=== PATIENT | female | born 1955 | race Caucasian/White ===

== ENCOUNTER 2017-11-12 09:21 | Day surgery (SDC) | payer OTHER ==
--- OUTSIDE RECORDS SUMMARY | 2017-11-12 09:24 | XMS REPORT ---
:1955 Author Organization eClinicalWorks Care Team Providers Name Role Phone Toy Romo Provider Role Unavailable Allergies, Adverse Reactions, Alerts Substance Reaction Event Type N.K.D.A. Info Not Available Non Drug Allergy Problems Problem Type Condition Code Onset Dates Condition Status Problem Liver cyst K76.89 Active Problem Allergic rhinitis, seasonal J30.2 Active Problem Breast cyst N60.09 Active Problem Anxiety F41.9 Active Problem Osteopenia M85.80 Active Problem Palpitations R00.2 Active Problem Myalgia M79.1 Active Problem Urine incontinence R32 Active Problem Migraine G43.909 Active Problem Low back pain M54.5 Active Problem Pure hypercholesterolemia E78.00 Active Problem Adult BMI 31.0-31.9 kg/sq m Z68.31 Active Problem Neuralgia and neuritis M79.2 Active Assessment Encounter for screening colonoscopy Z12.11 Active Problem Simple renal cyst N28.1 Active Medications Medication Code System Code Instructions Start Date End Date Status Dosage B-12 [facility] [address] Active not defined 4 iron NDC 0 Active not defined B-Complex [facility] [address] Active not defined 5 Biotin [facility] [address] Active not defined 3 Aspir-81 [facility] [address] Active not defined -26 Results No Known Results Summary Purpose eClinicalWorks Submission
[2017-11-12] MEDS ORDERED: Ringers Lactate 1,000 ML IV ONE (09:38)
[2017-11-12] MEDS ORDERED: LIDOCAINE 1% MPF 5 ML VIAL ONE (10:39)
[2017-11-12] MEDS ORDERED: PROPOFOL 200 MG/20 ML VIAL IV ONE (10:39)
--- NOTE | 2017-11-12 11:19 | ENDO RPT ---
[address], [address] COLONOSCOPY PROCEDURE REPORT EXAM DATE: 11/12/2017 PATIENT NAME: Fabiola Solorzano MR #: [id number] BIRTHDATE: 1955 ATTENDING: Toy Romo DR STATUS: outpatient SENIOR MANUFACTURING TECHNICIAN: Tasha Anna RN and Yo Benavidez INDICATIONS: The patient is a 62 yr old Female here for a colonoscopy due to colon cancer screening PROCEDURE PERFORMED: Colonoscopy MEDICATIONS: Per Anesthesia. ESTIMATED BLOOD LOSS: None CONSENT: The patient understands the risks and benefits of the procedure and understands that these risks include, but are not limited to: sedation, allergic reaction, infection, perforation and/or bleeding. Alternative means of evaluation and treatment include, among others: physical exam, x-rays, and/or surgical intervention. The patient elects to proceed with this endoscopic procedure. DESCRIPTION OF PROCEDURE: During intra-op preparation period all mechanical medical equipment was checked for proper function. Hand hygiene and appropriate measures for infection prevention was taken. Procedure, possible complications, alternatives including, but not limited to possibility of bleeding, perforation, tear, infection, sepsis, need for surgery, need for blood transfusion, were explained to the patient. After the risks, benefits and alternatives of the procedure were thoroughly explained, Informed consent was verified, confirmed and timeout was successfully executed by the treatment team. The patient was placed in the left lateral position. A digital rectal exam was performed and revealed internal hemorrhoids. After appropriate level of anesthesia, the scope was passed. The Pentax [id number] ([id number]) endoscope was introduced through the anus and advanced to the cecum. The quality of the prep was poor. The instrument was then slowly withdrawn as the colon was fully examined. Scope withdrawal time was 15 minutes. COLON FINDINGS: A normal appearing cecum, ileocecal valve, and appendiceal orifice were identified. the ascending, transverse, descending, sigmoid colon, and rectum appeared unremarkable. Small internal hemorrhoids were found. Retroflexed views revealed no abnormalities. The scope was then completely withdrawn from the patient and the procedure terminated. ADVERSE EVENTS: There were no complications. IMPRESSIONS: A normal appearing cecum, ileocecal valve, and appendiceal orifice were identified. the ascending, transverse, descending, sigmoid colon, and rectum appeared unremarkable RECOMMENDATIONS: 1. fiber rich diet 2. hemorrhoidal hygiene RECALL: Return in 3 year(s) for Colonoscopy. Poor Prep Toy Romo DR eSigned: Toy Romo DR 11/12/2017 11:19 AM cc: CPT CODES: ICD9 CODES: PATIENT NAME: Fabiola Solorzano MR#: [id number]
== END 2017-11-12 12:04 | disposition home or self-care (01) ==
LOC: OR 09:21
PROVIDERS: ATTEND Surgery
PROC: 0DJD8ZZ Inspection of Lower Intestinal Tract, Via Natural or Artificial Opening Endoscopic (ICD-10-PCS; principal; 2017-11-12 10:00)
DX: Z12.11 Encounter for screening for malignant neoplasm of colon (principal); K64.8 Other hemorrhoids; Z82.49 Family history of ischemic heart disease and other diseases of the circulatory system; Z80.9 Family history of malignant neoplasm, unspecified; Z82.61 Family history of arthritis

== ENCOUNTER 2018-02-02 23:46 | Emergency (ER) | payer OTHER ==
--- OUTSIDE RECORDS SUMMARY | 2018-02-02 23:48 | XMS REPORT ---
[...] Start Date End Date Status Dosage B-12 [facility] [address] Active not defined 4 iron NDC 0 Active not defined B-Complex [facility] [address] Active not defined 5 Biotin [facility] [address] Active not defined 3 Aspir-81 [facility] [address] Active not defined -26 Results No Known Results Summary Purpose eClinicalWorks Submission
[2018-02-03 00:35] LABS: Absolute Lymphocytes (CBC) 3.1 K/uL (0.7-4.9); Absolute Monocytes 0.8 K/uL (0.1-1.3); Absolute Neutrophil 6.3 K/uL (1.8-8.0); Basophils % 0.7 % (0-1.3); Hematocrit 40.6 % (36.0-45.0); Lymphocytes % 29.3 % (15.3-44.8); MCH 28.5 pg (27.0-35.0); MCV 84.7 fL (80-100); MPV 8.3 fL (7.6-11.3); Monocytes % 7.8 % (3.3-12.3)
[2018-02-03 00:48] LABS: Urine Blood 2+ (NEG); Urine Glucose NEGATIVE (NEG); Urine Protein 2+ (NEG); Urine Specific Gravity >1.030 (1.005-1.030); Urine pH 5.5 (5.0-7.0)
[2018-02-03 00:57] LABS: Albumin 3.7 g/dL (3.4-5.0); Bilirubin Direct 0.1 mg/dL (0-0.2); Bilirubin Total 0.4 mg/dL (0.2-1.0); Potassium 4.1 mmol/L (3.5-5.1); Protein, Total 7.8 g/dL (6.4-8.2)
[2018-02-03 01:10] LABS: Calcium Oxalate Crystals- Ur FEW (NONE SEEN); Urine Bacteria 20-50 /HPF (<20); Urine Culture Reflex Order REFLEXED; Urine RBC >50 /HPF (NONE SEEN)
[2018-02-03] MEDS ORDERED: ACETAMINOPHEN 500 MG TAB ONE (02:02)
--- NOTE | 2018-02-03 02:42 | EDPHYS ---
Physician Documentation [facility] Name: Fabiola Solorzano Age: 62 yrs Sex: Female : 1955 Arrival Date: 02/02/2018 Time: 23:47 Bed 24 Private MD: ED Physician Raul Taylor HPI: 02/03 01:13 This 62 yrs old Female presents to ER via Ambulatory with complaints of Blood jr8 In Urine. 01:13 Patient stated that she has had dysuria for the past couple of days. Has also noticed jr8 for the past couple of months that she has had black tar like stools. Now having abdominal pain on left side . Severity of symptoms: At their worst the symptoms were moderate in the emergency department the symptoms are unchanged. The patient has not experienced similar symptoms in the past. The patient has not recently seen a physician. Historical: - Allergies: 00:02 No Known Allergies; bb - Home Meds: 00:02 None [Active]; bb - PMHx: 00:02 None; bb - PSHx: 00:02 cataracts; bb - Immunization history:: Adult Immunizations unknown. - Social history:: Smoking status: Patient/guardian denies using tobacco, Patient/guardian denies using alcohol, street drugs. - Ebola Screening: : No symptoms or risks identified at this time. ROS: 01:13 Eyes: Negative for injury, pain, redness, and discharge, ENT: Negative for injury, jr8 pain, and discharge, Neck: Negative for injury, pain, and swelling, Cardiovascular: Negative for chest pain, palpitations, and edema, Respiratory: Negative for shortness of breath, cough, wheezing, and pleuritic chest pain, Back: Negative for injury and pain, MS/Extremity: Negative for injury and deformity, Skin: Negative for injury, rash, and discoloration, Neuro: Negative for headache, weakness, numbness, tingling, and seizure. 01:13 Abdomen/GI: Positive for abdominal pain, black/tarry stool, Negative for nausea, vomiting, and diarrhea, hematemesis, rectal pain, rectal bleeding, bowel incontinence, flatulence. 01:13 : Positive for urinary symptoms, hematuria. Exam: 01:13 Eyes: Pupils equal round and reactive to light, extra-ocular motions intact. Lids and jr8 lashes normal. Conjunctiva and sclera are non-icteric and not injected. Cornea within normal limits. Periorbital areas with no swelling, redness, or edema. ENT: Nares patent. No nasal discharge, no septal abnormalities noted. Tympanic membranes are normal and external auditory canals are clear. Oropharynx with no redness, swelling, or masses, exudates, or evidence of obstruction, uvula midline. Mucous membranes moist. Neck: Trachea midline, no thyromegaly or masses palpated, and no cervical lymphadenopathy. Supple, full range of motion without nuchal rigidity, or vertebral point tenderness. No Meningismus. Cardiovascular: Regular rate and rhythm with a normal S1 and S2. No gallops, murmurs, or rubs. Normal PMI, no JVD. No pulse deficits. Respiratory: Lungs have equal breath sounds bilaterally, clear to auscultation and percussion. No rales, rhonchi or wheezes noted. No increased work of breathing, no retractions or nasal flaring. Back: No spinal tenderness. No costovertebral tenderness. Full range of motion. Skin: Warm, dry with normal turgor. Normal color with no rashes, no lesions, and no evidence of cellulitis. MS/ Extremity: Pulses equal, no cyanosis. Neurovascular intact. Full, normal range of motion. Neuro: Awake and alert, GCS 15, oriented to person, place, time, and situation. Cranial nerves II-XII grossly intact. Motor strength 5/5 in all extremities. Sensory grossly intact. Cerebellar exam normal. Normal gait. 01:13 Abdomen/GI: Inspection: obese Bowel sounds: active, all quadrants, Palpation: soft, in all quadrants, mild abdominal tenderness, in the anterior aspect of left lateral abdomen and left lower quadrant, mass, is not appreciated, rebound tenderness, is not appreciated, voluntary guarding, is not appreciated, involuntary guarding, is not appreciated, no appreciated organomegaly, Indicators: McBurney's point is not tender, Hollins's sign is negative, Rovsing's sign is negative, Liver: no appreciated palpable abnormalities, tenderness, is not appreciated. 02:40 Abdomen/GI: Rectal exam: rectal tone normal, Stool: No stool in rectal vault to be able jr8 to test, hemorrhoid(s), external, without bleeding, without inflammation, without thrombosis, without pain, mass, is not appreciated, swelling, is not appreciated, tenderness, is not appreciated, the exam is chaperoned by the nurse. Vital Signs: 00:02 BP 158 / 80; Pulse 85; Resp 16 S; Temp 99.3(O); Pulse Ox 96% on R/A; Weight 97.52 kg bb (R); Height 5 ft. 7 in. (170.18 cm) (R); Pain 4/10; 00:56 BP 146 / 72; Pulse 87; Resp 18; Pulse Ox 95% on R/A; Pain 2/10; mg2 01:50 BP 149 / 85; Pulse 81; Resp 20; Pulse Ox 96% ; lc1 03:09 BP 125 / 77; Pulse 76; Resp 22; Pulse Ox 98% on R/A; lc1 00:02 Body Mass Index 33.67 (97.52 kg, 170.18 cm) bb MDM: 00:00 Patient medically screened. jr8 02:40 Data reviewed: vital signs, nurses notes, lab test result(s), radiologic studies, CT jr8 scan, and as a result, I will discharge patient. Data interpreted: Pulse oximetry: on room air is 96 %. Interpretation: normal. Counseling: I had a detailed discussion with the patient and/or guardian regarding: the historical points, exam findings, and any diagnostic results supporting the discharge/admit diagnosis, lab results, radiology results, the need for outpatient follow up, a national coverage specialist, to return to the emergency department if symptoms worsen or persist or if there are any questions or concerns that arise at home. ED course: Discussed with patient that she has cystitis. Will treat with antibiotics. No drop in H/H. Needs to f/u with GI for endoscopy and colonoscopy. Patient good with this and will follow up. 02/03 00:10 Order name: Urine Dipstick--Ancillary (enter results); Complete Time: 00:57 rg2 02/03 00:16 Order name: Basic Metabolic Panel; Complete Time: 00:58 02/03 00:16 Order name: CBC with Diff; Complete Time: 00:47 02/03 00:16 Order name: Creatinine for Radiology; Complete Time: 00:57 02/03 00:16 Order name: Hepatic Function; Complete Time: 00:58 02/03 00:16 Order name: Lipase; Complete Time: 00:58 02/03 00:16 Order name: Urine Microscopic Only; Complete Time: 01:13 02/03 00:16 Order name: IV Saline Lock; Complete Time: 00:20 02/03 00:16 Order name: Labs collected and sent; Complete Time: 00:20 02/03 00:16 Order name: Urine Dipstick-Ancillary (obtain specimen); Complete Time: 00:20 02/03 00:16 Order name: CT Abd/Pelvis - W/Contrast 02/03 01:11 Order name: Urine Culture EDMS Administered Medications: 02:20 Drug: Tylenol 1000 mg Route: PO; lc1 03:26 Follow up: Response: No adverse reaction 1 03:07 Drug: Rocephin 1 grams Route: IV; Rate: calculated rate; Site: right antecubital; lc1 03:08 Follow up: Response: No adverse reaction 1 03:08 Follow up: IV Status: Completed infusion 1 Disposition: 20:34 Co-signature as Attending Physician, Raul Taylor MD I agree with the assessment and wa plan of care. Disposition: 02/03/18 02:42 Discharged to Home. Impression: Acute cystitis with hematuria. - Condition is Stable. - Discharge Instructions: Urinary Tract Infection, Adult. - Prescriptions for Pyridium 200 mg Oral Tablet - take 1 tablet by ORAL route every 8 hours for 3 days; 9 tablet. Macrobid 100 mg Oral Capsule - take 1 capsule by ORAL route every 12 hours for 7 days; 14 capsule. - Medication Reconciliation Form, Thank You Letter, Antibiotic Education, Prescription Opioid Use form. - Follow up: Raul Jung MD; When: 1 week; Reason: Recheck today's complaints, Continuance of care, Re-evaluation by your physician. - Problem is new. - Symptoms have improved. Signatures: Dispatcher [employer] EDMS Jenn Staley RN RN Alana Rodriguez 1 Jordan Hernandez PA PA [id number] Raul Taylor MD MD [place] Corrections: (The following items were deleted from the chart) 03:27 02:42 02/03/2018 02:42 Discharged to Home. Impression: Acute cystitis with hematuria. lc1 Condition is Stable. Forms are Medication Reconciliation Form, Thank You Letter, Antibiotic Education, Prescription Opioid Use. Follow up: Raul Jung; When: 1 week; Reason: Recheck today's complaints, Continuance of care, Re-evaluation by your physician. Problem is new. Symptoms have improved. jr8
--- NOTE | 2018-02-03 02:42 | ER ---
Nurse's Notes [facility] Name: Fabiola Solorzano Age: 62 yrs Sex: Female : 1955 Arrival Date: 02/02/2018 Time: 23:47 Bed 24 Private MD: Diagnosis: Acute cystitis with hematuria Presentation: 02/03 00:01 Presenting complaint: Patient states: she was having back pain radiating to her abdomen bb and blood in her urine starting this past weekend thinks she may have passed a kidney stone. Transition of care: patient was not received from another setting of care. Onset of symptoms was January 31, 2018. Risk Assessment: Do you want to hurt yourself or someone else? Patient reports no desire to harm self or others. Initial Sepsis Screen: Does the patient meet any 2 criteria? No. Patient's initial sepsis screen is negative. Does the patient have a suspected source of infection? No. Patient's initial sepsis screen is negative. Care prior to arrival: None. 00:01 Method Of Arrival: Ambulatory bb 00:01 Acuity: SHABBIR 3 bb Historical: - Allergies: 00:02 No Known Allergies; bb - Home Meds: 00:02 None [Active]; bb - PMHx: 00:02 None; bb - PSHx: 00:02 cataracts; bb - Immunization history:: Adult Immunizations unknown. - Social history:: Smoking status: Patient/guardian denies using tobacco, Patient/guardian denies using alcohol, street drugs. - Ebola Screening: : No symptoms or risks identified at this time. Screenin:30 Abuse screen: Denies threats or abuse. Denies injuries from another. Nutritional kr2 screening: No deficits noted. Tuberculosis screening: No symptoms or risk factors identified. Fall Risk None identified. Assessment: 00:26 General: Appears in no apparent distress. uncomfortable, well groomed, well developed, kr2 well nourished, Behavior is calm, cooperative, appropriate for age. Pain: Complains of pain in head, back, abdomen and left flank Pain currently is 4 out of 10 on a pain scale. Quality of pain is described as aching, dull, Is continuous, Alleviated by medications, Aggravated by increased activity. Neuro: Level of Consciousness is awake, alert, obeys commands, Oriented to person, place, time, situation. Cardiovascular: Capillary refill < 3 seconds in bilateral fingers Patient's skin is warm and dry. Respiratory: Airway is patent Respiratory effort is even, unlabored, Respiratory pattern is regular, symmetrical. GI: Abdomen is round non-distended. GI: Bowel sounds present X 4 quads. : Urine is clear, Reports blood in urine and "like an electrical shock at the end of my urine stream". EENT: Oral mucosa is moist. Derm: Skin is intact, is healthy with good turgor, Skin is pink, warm \\T\\ dry. Rash noted that is itchy, raised. Musculoskeletal: Circulation, motion, and sensation intact. 01:30 Reassessment: No changes from previously documented assessment. Patient and/or family lc1 updated on plan of care and expected duration. Pain level reassessed. 02:30 Reassessment: No changes from previously documented assessment. Patient and/or family lc1 updated on plan of care and expected duration. Pain level reassessed. Patient states feeling better. . Vital Signs: 00:02 BP 158 / 80; Pulse 85; Resp 16 S; Temp 99.3(O); Pulse Ox 96% on R/A; Weight 97.52 kg bb (R); Height 5 ft. 7 in. (170.18 cm) (R); Pain 4/10; 00:56 BP 146 / 72; Pulse 87; Resp 18; Pulse Ox 95% on R/A; Pain 2/10; mg2 01:50 BP 149 / 85; Pulse 81; Resp 20; Pulse Ox 96% ; lc1 03:09 BP 125 / 77; Pulse 76; Resp 22; Pulse Ox 98% on R/A; lc1 00:02 Body Mass Index 33.67 (97.52 kg, 170.18 cm) bb ED Course: 02/02 23:47 Patient arrived in ED. ds1 23:57 Sparkle Fox, BREA is Primary Nurse. kr2 02/03 00:00 Jordan Hernandez PA is PHCP. jr8 00:00 Raul Taylor MD is Attending Physician. jr8 00:02 Triage completed. bb 00:02 Arm band placed on Patient placed in an exam room, on a stretcher, on pulse oximetry. bb 00:20 Inserted saline lock: 20 gauge in right antecubital area, using aseptic technique. kr2 Blood collected. 00:30 Patient has correct armband on for positive identification. Bed in low position. Call kr2 light in reach. Side rails up X 1. Pulse ox on. NIBP on. Door closed. Warm blanket given. Pillow given. Head of bed elevated. 01:[address] via wheelchair. kw1 01:28 CT Abd/Pelvis - W/Contrast In Process Unspecified. EDMS 01:29 CT completed. Patient tolerated procedure well. Patient moved back from CT. kw1 01:50 Awaiting radiology results. lc1 02:30 Served as a color mixer during rectal exam. IV discontinued, intact, bleeding controlled, lc1 Pressure dressing applied. 02:42 Raul Jung MD is Referral Physician. jr8 Administered Medications: 02:20 Drug: Tylenol 1000 mg Route: PO; lc1 03:26 Follow up: Response: No adverse reaction lc1 03:07 Drug: Rocephin 1 grams Route: IV; Rate: calculated rate; Site: right antecubital; lc1 03:08 Follow up: Response: No adverse reaction lc1 03:08 Follow up: IV Status: Completed infusion lc1 Outcome: 02:30 Discharged to home ambulatory. lc1 02:30 Condition: good 02:30 Discharge instructions given to patient, Instructed on discharge instructions, medication usage, Demonstrated understanding of instructions, follow-up care, medications. 02:42 Discharge ordered by . navi 03:27 Patient left the ED. lc1 Addendum: 02/06/2018 07:42 Addendum: Culture Results: Positive urine culture. No further action required. Bacteria i w sensitive to prescribed antibiotic. Signatures: Dispatcher [facility] Shanel Bae 1 Jenn Staley RN RN Hodan Abel RN RN iw Calhoun, Lisa lc1 Jordan Hernandez PA PA jr8 Sparkle Fox RN RN kr2 Yasemin Graves kw1 Cj Brody RN RN mg2 Corrections: (The following items were deleted from the chart) 02/03 00:31 00:26 Derm: Skin is intact, is healthy with good turgor, Skin is pink, warm \\T\\ dry. kr2 kr2
[2018-02-03] MEDS ORDERED: CEFTRIAXONE/SWI 1gm 1 GM/10 ML SYR ONE (02:44)
--- NOTE | 2018-02-03 08:35 | RAD REPORT ---
EXAM DESCRIPTION: CTAbdomen Pelvis W Contrast - 02/03/2018 4:19 am CLINICAL HISTORY: Abdominal pain. iv only;Abd pain COMPARISON: None TECHNIQUE: Biphasic CT imaging of the abdomen and pelvis was performed with 100 ml non-ionic IV cont rast. All CT scans are performed using dose optimization technique as appropriate and may include automated exposure control or mA/KV adjustment according to patient size. FINDINGS: The lung bases are clear. The liver contains a small benign cyst in the left lobe. The spleen, pancreas, adrenal glands and kid neys are within normal limits. No bowel obstruction, free air, free fluid or abscess. The appendix is normal. No evidence of signi ficant lymphadenopathy. No suspicious bony findings. Urinary bladder is decompressed however there is slight reticulation of the fat surrounding the collapsed urinary bladder. IMPRESSION: Cystitis is a possibility although the urinary bladder is incompletely assessed. Correla tion with urinalysis is suggested. Otherwise, no acute finding is demonstrated.
== END 2018-02-03 03:27 | disposition home or self-care (01) ==
LOC: ER 23:46
DX: N30.01 Acute cystitis with hematuria (principal)
CPT/HCPCS: 36415; 74177; 80048; 80076; 81003; 81015; 83690; 85025; 87077; 87086; 87088; 87186; 96374; 99285; J0696; Q9967

== ENCOUNTER 2019-04-28 15:48 | Emergency (ER) | payer SELFPAY ==
[2019-04-28] MEDS ORDERED: HYDROCODONE/APAP 7.5/325 MG TAB ONE (16:35)
--- NOTE | 2019-04-28 17:16 | RAD REPORT ---
EXAM DESCRIPTION: RAD - Knee Left 3 View - 04/28/2019 5:09 pm CLINICAL HISTORY: trip and fall;Pain COMPARISON: No comparisons FINDINGS: Moderate soft tissue swelling is seen along the medial aspect of the knee. No definitive a cute fracture seen. Small amount of suprapatellar fluid is present.
--- NOTE | 2019-04-28 17:17 | RAD REPORT ---
EXAM DESCRIPTION: RAD - Tib Fib Left - 04/28/2019 5:09 pm CLINICAL HISTORY: trip and fall;Pain COMPARISON: No comparisons FINDINGS: No acute fracture or dislocation seen.
--- NOTE | 2019-04-28 17:28 | EDPHYS ---
Physician Documentation [facility] Name: Fabiola Solorzano Age: 63 yrs Sex: Female : 1955 Arrival Date: 04/28/2019 Time: 15:48 Bed 20 Private MD: ED Physician Sreekanth Ordonez HPI: 04/28 16:25 This 63 yrs old Female presents to ER via Wheelchair with complaints of Knee cp Injury. 16:25 The patient presents with a contusion, an injury. cp 16:25 The complaints affect the medial aspect of left knee and left knee. Context: trip and cp fall. Onset: The symptoms/episode began/occurred today. Associated signs and symptoms: Pertinent positives: swelling, Pertinent negatives numbness, weakness. Treatment prior to arrival includes: icing the affected extremity. Severity of symptoms: in the emergency department the symptoms are unchanged, despite home interventions. Historical: - Allergies: 15:58 No Known Allergies; hb - Home Meds: 15:58 None [Active]; hb - PMHx: 15:58 None; hb - PSHx: 15:58 cataracts; hb - Immunization history:: Adult Immunizations up to date. - Social history:: Smoking status: Patient/guardian denies using tobacco. - Ebola Screening: : No symptoms or risks identified at this time. ROS: 16:30 Constitutional: Negative for body aches, chills, fever, poor PO intake. cp 16:30 Eyes: Negative for injury, pain, redness, and discharge. cp 16:30 Cardiovascular: Negative for chest pain. 16:30 Respiratory: Negative for cough, shortness of breath, wheezing. 16:30 Abdomen/GI: Negative for abdominal pain, nausea, vomiting, and diarrhea. 16:30 MS/extremity: Positive for decreased range of motion, pain, swelling, tenderness, of the medial aspect of left knee and left knee, Negative for deformity, paresthesias. 16:30 Neuro: Negative for loss of consciousness. 16:30 All other systems are negative. Exam: 16:45 Constitutional: The patient appears in no acute distress, alert, awake, non-toxic, well cp developed, well nourished. 16:45 Head/Face: Normocephalic, atraumatic. cp 16:45 Eyes: Periorbital structures: appear normal, Conjunctiva: normal, no exudate, no injection, Lids and lashes: appear normal, bilaterally. 16:45 ENT: External ear(s): are unremarkable, Nose: is normal, Mouth: is normal, Posterior pharynx: Airway: no evidence of obstruction, patent. 16:45 Neck: ROM/movement: is normal, is supple, without pain, no range of motions limitations. 16:45 Chest/axilla: Inspection: normal. 16:45 Cardiovascular: Rate: normal, Edema: is not appreciated. 16:45 Respiratory: the patient does not display signs of respiratory distress, Respirations: normal. 16:45 Musculoskeletal/extremity: Extremities: grossly normal except: noted in the anterior aspect left lower leg below knee: swelling, tenderness, There is no evidence of deformity, Joints: All joints are normal except the left knee displays pain at rest, painful range of motion, swelling, tenderness. 16:45 Skin: no rash present. 16:45 Neuro: Orientation: to person, place \T\ time. Mentation: is normal, Motor: moves all fours, strength is normal, Sensation: is normal. Vital Signs: 15:58 BP 124 / 92; Pulse 87; Resp 16; Temp 97.8; Pulse Ox 97% on R/A; Weight 88.45 kg; Height hb 5 ft. 7 in. (170.18 cm); Pain 9/10; 18:02 BP 122 / 88; Pulse 79; Resp 17; Pulse Ox 97% on R/A; tw2 15:58 Body Mass Index 30.54 (88.45 kg, 170.18 cm) hb Procedures: 17:45 Splinting: Splint applied to left knee using knee immobilizer, applied by nurse. cp Examined by me, post splint application: neurovascular intact, Patient tolerated well. 17:45 Crutch training provided to patient and/or family. Return demonstration given. cp MDM: 16:05 Patient medically screened. cp 16:45 Differential diagnosis: dislocation, open fracture, closed fracture, contusion. cp 17:26 Data reviewed: vital signs, nurses notes, radiologic studies, plain films. cp 17:26 Test interpretation: by ED physician or midlevel provider: plain radiologic studies. cp Counseling: I had a detailed discussion with the patient and/or guardian regarding: the historical points, exam findings, and any diagnostic results supporting the discharge/admit diagnosis, radiology results, the need for outpatient follow up, a orthopedic surgeon, to return to the emergency department if symptoms worsen or persist or if there are any questions or concerns that arise at home. Response to treatment: the patient's symptoms have markedly improved after treatment, and as a result, I will discharge patient. 04/28 16:23 Order name: XRAY Knee LEFT 3 view; Complete Time: 17:25 cp 04/28 17:26 Interpretation: Report reviewed. cp 04/28 16:23 Order name: XRAY Tib Fib LEFT; Complete Time: 17:25 cp 04/28 17:26 Interpretation: Report reviewed. cp 04/28 17:25 Order name: Crutches; Complete Time: 17:51 cp 04/28 17:34 Order name: Knee Immobilizer; Complete Time: 17:51 tw2 Administered Medications: 16:40 Drug: Hydrocodone-Acetaminophen (7.5 mg-325 mg) 1 tabs Route: PO; tw2 17:51 Follow up: Response: No adverse reaction; Pain is decreased; RASS: Alert and Calm (0) tw2 16:41 Not Given (Duplicate Order): Hydrocodone-Acetaminophen (7.5 mg-325 mg) 2 tabs PO once; tw2 RASS on ADMIN: Combtv4, Very Agttd3, Agttd2, Rstlss1, AlertClm0, Drwsy-1, Lt Sdtn-2, Mod Sdtn-3, Dp Sdtn-4, UnArsble-5 Disposition: 04/29 09:20 Co-signature as Attending Physician, Sreekanth Ordonez MD I agree with the assessment and kdr plan of care. Disposition: 04/28/19 17:27 Discharged to Home. Impression: Contusion of left knee. - Condition is Stable. - Discharge Instructions: Knee Immobilizer, Knee Pain. - Prescriptions for Ibuprofen 800 mg Oral Tablet - take 1 tablet by ORAL route every 8 hours As needed take with food; 30 tablet. Tramadol 50 mg Oral Tablet - take 1 tablet by ORAL route every 8 hours as needed; 15 tablet. - Medication Reconciliation Form, Thank You Letter, Antibiotic Education, Prescription Opioid Use form. - Follow up: Russell Maynard MD; When: 2 - 3 days; Reason: Recheck today's complaints. - Problem is new. - Symptoms have improved. Signatures: Dispatcher [employer] EDMS Sreekanth Ordonez MD MD [facility] Adelita Morales RN RN ss Damian Rosales PA PA cp Bridget Salgado, BREA RN Rosalie Ortiz RN RN tw2 Corrections: (The following items were deleted from the chart) 04/28 17:26 17:25 Knee Immobilizer ordered. cp tw2 17:56 17:27 04/28/2019 17:27 Discharged to Home. Impression: Contusion of left knee. ss Condition is Stable. Forms are Medication Reconciliation Form, Thank You Letter, Antibiotic Education, Prescription Opioid Use. Follow up: Dr. Russell Maynard; When: 2 - 3 days; Reason: Recheck today's complaints. Problem is new. Symptoms have improved. cp
--- NOTE | 2019-04-28 17:28 | ER ---
Nurse's Notes [facility] Name: Fabiola Solorzano Age: 63 yrs Sex: Female : 1955 Arrival Date: 04/28/2019 Time: 15:48 Bed 20 Private MD: Diagnosis: Contusion of left knee Presentation: 04/28 15:56 Presenting complaint: Left knee pain after mechanical from standing just [employer]. Pt hb tripped in garage and landed onto knees. Transition of care: patient was not received from another setting of care. Onset of symptoms was April 28, 2019. Risk Assessment: Do you want to hurt yourself or someone else? Patient reports no desire to harm self or others. Initial Sepsis Screen: Does the patient meet any 2 criteria? No. Patient's initial sepsis screen is negative. Does the patient have a suspected source of infection? No. Patient's initial sepsis screen is negative. Care prior to arrival: None. 15:56 Method Of Arrival: Wheelchair hb 15:56 Acuity: SHABBIR 4 hb Triage Assessment: 16:06 Injury Description: fell from standing. tw2 Historical: - Allergies: 15:58 No Known Allergies; hb - Home Meds: 15:58 None [Active]; hb - PMHx: 15:58 None; hb - PSHx: 15:58 cataracts; hb - Immunization history:: Adult Immunizations up to date. - Social history:: Smoking status: Patient/guardian denies using tobacco. - Ebola Screening: : No symptoms or risks identified at this time. Screenin:00 Abuse screen: Denies threats or abuse. Nutritional screening: No deficits noted. tw2 Tuberculosis screening: No symptoms or risk factors identified. Fall Risk None identified. Assessment: 16:05 General: Appears in no apparent distress. obese, Behavior is calm, cooperative, tw2 appropriate for age. Pain: Complains of pain in left knee. Neuro: Level of Consciousness is awake, alert, obeys commands, Oriented to person, place, time, situation. Cardiovascular: Patient's skin is warm and dry. Respiratory: Airway is patent Respiratory effort is even, unlabored, Respiratory pattern is regular, symmetrical. GI: No signs and/or symptoms were reported involving the gastrointestinal system. : No signs and/or symptoms were reported regarding the genitourinary system. EENT: No signs and/or symptoms were reported regarding the EENT system. Derm: No signs and/or symptoms reported regarding the dermatologic system. Musculoskeletal: Circulation, motion, and sensation intact. Range of motion: intact in all extremities, Swelling present in left knee. 17:00 Reassessment: Patient appears in no apparent distress at this time. No changes from tw2 previously documented assessment. Patient and/or family updated on plan of care and expected duration. Pain level reassessed. Patient is alert, oriented x 3, equal unlabored respirations, skin warm/dry/pink. 18:02 Reassessment: Patient appears in no apparent distress at this time. No changes from tw2 previously documented assessment. Patient and/or family updated on plan of care and expected duration. Pain level reassessed. Patient is alert, oriented x 3, equal unlabored respirations, skin warm/dry/pink. Vital Signs: 15:58 BP 124 / 92; Pulse 87; Resp 16; Temp 97.8; Pulse Ox 97% on R/A; Weight 88.45 kg; Height hb 5 ft. 7 in. (170.18 cm); Pain 9/10; 18:02 BP 122 / 88; Pulse 79; Resp 17; Pulse Ox 97% on R/A; tw2 15:58 Body Mass Index 30.54 (88.45 kg, 170.18 cm) hb ED Course: 15:48 Patient arrived in ED. as 15:58 Triage completed. hb 15:58 Arm band placed on. hb 16:00 Rosalie Ortiz, RN is Primary Nurse. tw2 16:00 Bed in low position. Call light in reach. tw2 16:03 Damian Rosales PA is PHCP. cp 16:03 Sreekanth Ordonez MD is Attending Physician. cp 17:10 XRAY Knee LEFT 3 view In Process Unspecified. EDMS 17:11 XRAY Tib Fib LEFT In Process Unspecified. EDMS 17:27 Russell Maynard MD is Referral Physician. cp 18:01 Patient did not have IV access during this emergency room visit. Crutch training done. tw2 Knee immobilizer applied on left knee. 18:02 No provider procedures requiring assistance completed. tw2 Administered Medications: 16:40 Drug: Hydrocodone-Acetaminophen (7.5 mg-325 mg) 1 tabs Route: PO; tw2 17:51 Follow up: Response: No adverse reaction; Pain is decreased; RASS: Alert and Calm (0) tw2 16:41 Not Given (Duplicate Order): Hydrocodone-Acetaminophen (7.5 mg-325 mg) 2 tabs PO once; tw2 RASS on ADMIN: Combtv4, Very Agttd3, Agttd2, Rstlss1, AlertClm0, Drwsy-1, Lt Sdtn-2, Mod Sdtn-3, Dp Sdtn-4, UnArsble-5 Outcome: 17:27 Discharge ordered by . cp 17:56 Patient left the ED. ss 18:03 Discharged to home via wheelchair, with family, with friend. tw2 18:03 Condition: stable 18:03 Discharge instructions given to patient, family, friend, Instructed on discharge instructions, follow up and referral plans. no driving heavy equipment, medication usage, safety practices, crutch walking, knee immobilizer Demonstrated understanding of instructions, follow-up care, medications, crutch walking, Prescriptions given X 2. Signatures: Dispatcher [employer] Keyla Altman Shelby RN RN Damian Rosales PA PA cp Baxter, Heather, RN RN hb Rosalie Ortiz RN RN tw2 Corrections: (The following items were deleted from the chart) 15:59 15:56 Acuity: SHABBIR 3 hb hb
[2019-04-28 18:15] VITALS: BP 124/92; TEMP 97.8; O2SAT 97
== END 2019-04-28 17:56 | disposition home or self-care (01) ==
LOC: ER 15:48
DX: S80.02XA Contusion of left knee, initial encounter (principal); W01.0XXA Fall on same level from slipping, tripping and stumbling without subsequent striking against object, initial encounter; Y93.89 Activity, other specified; Y92.9 Unspecified place or not applicable
CPT/HCPCS: 99284

== ENCOUNTER 2020-11-26 18:45 | Observation (INO) | payer MEDICARE, SELFPAY ==
--- OUTSIDE RECORDS SUMMARY | 2020-11-26 18:48 | XMS REPORT | Continuity of Care Document ---
:1955 Author Organization [facility] t Address [address] [place] [address] Care Team Providers Name Role Phone Unavailable Unavailable Unavailable Problems Condition Condition Condition Status Onset Resolution Last Treating Co mments Source Name Details Category Date Date Treatment Clinician Date Liver cyst Liver cyst Problem Active [facility] Allergic All[facility] Problem [facility] Breast Breast Problem Active [facility]xiety Anxiety Problem [facility] Osteopenia Osteopenia Problem Active [facility] Palpitatio Palpitatio Problem Active [facility] Myalgia Myalgia Problem Active [facility] Urine Urine Problem Active [facility] incontinen incontinen [facility] Migraine Migraine Problem [facility] Low back Low back Problem [facility]ics Pure Pure Problem Active [facility] hyperchole hyperchole [facility] - sterolemia sterolemia [facility] Adult BMI Adult BMI Problem Active [facility] 31.0-31.9 31.0-31.9 [facility] - kg/sq m kg/sq m [facility] Neuralgia Neuralgia Problem [facility] Simple Simple Problem Active [facility] renal cyst renal cyst [facility] Nocturnal Nocturnal Diagnosis Active [facility] leg cramps leg cramps [facility] LLQ LLQ Diagnosis Active [facility] abdominal abdominal [facility] pain [facility] Allergies, Adverse Reactions, Alerts This patient has no known allergies or adverse reactions. Medications Ordered Filled Start Stop Current Ordering Indication Dosage Frequency Signature Comments Components Source Medication Medication Date Date Medication? Clinician (SIG) Name Name B-12 B-12 Yes Brandon not [facility] iron iron Yes [facility] B[facility]Complex B-Complex Yes [facility] Biotin Biotin Yes Brandon [facility]ics Aspir-81 Aspir-81 Yes Brandon [facility] [place] 2018- No Brandon [address] [facility] 03-02 Alexis applicatio [facility] - 00:00 n to [facility] :00 affected l area [facility] Procedures This patient has no known procedures. Encounters Start End Encounter Admission Attending Care Care Encounter Source Date/Time Date/Time Type Type Clinicians Facility Department ID 2018-02-23 2018-02-23 [facility] [id number] [facility] 14:20[facility]00 14:20:00 t [facility] 2018-02-10 2018-02-10 [facility] [id number] [facility] 16:20:00 16:20:00 t [facility] 2018-02-02 2018-02-02 [facility] [id number] [address] 16:33:00 16:33:00 t [facility] 2017-11-05 2017-11-05 [facility] [id number] [facility] 14:45:00 14:45:00 t Specialty/U [facility] - Specialty [facility] Results This patient has no known results.
[2020-11-26 20:23] LABS: Absolute Lymphocytes (CBC) 1.7 K/uL (0.7-4.9); Basophils % 0.4 % (0-1.3); Hematocrit 40.4 % (36.0-45.0); Lymphocytes % 26.1 % (15.3-44.8); MPV 7.9 fL (7.6-11.3); RBC Red Blood Cell Count 4.86 M/uL (3.86-4.86)
--- NOTE | 2020-11-26 20:24 | RAD REPORT ---
EXAM DESCRIPTION: Marquise Single View11/26/2020 8:07 pm CLINICAL HISTORY: cough COMPARISON: none FINDINGS: The lungs appear clear of acute infiltrate. The heart is borderline enlarged IMPRESSION: No acute abnormalities displayed
[2020-11-26 20:32] LABS: Urine Blood Negative (Negative); Urine Glucose Negative (Negative); Urine Protein 1+ (Negative); Urine Specific Gravity 1.025 (1.005-1.030)
[2020-11-26] MEDS ORDERED: METHYLPREDNISOLONE 125 MG INJ ONE (20:37)
[2020-11-26] MEDS ORDERED: ONDANSETRON 4 MG/2 ML VIAL ONE (20:38)
[2020-11-26] MEDS ORDERED: FAMOTIDINE 20 MG/2 ML VIAL IV ONE (20:38)
[2020-11-26] MEDS ORDERED: BENZONATATE 100 MG CAP PO ONE (20:38)
[2020-11-26 20:46] LABS: ALT/SGPT 46 U/L (12-78); AST/SGOT 33 U/L (15-37); Albumin 3.8 g/dL (3.4-5.0); Alkaline Phosphatase 186 U/L (45-117); BUN Blood Urea Nitrogen 17 mg/dL (7-18); Bicarbonate 26 mmol/L (21-32); Bilirubin Direct < 0.1 mg/dL (0-0.2); Bilirubin Total 0.3 mg/dL (0.2-1.0); Glucose Level 103 mg/dL (74-106); Magnesium 2.4 mg/dL (1.8-2.4); NT PRO-BNP 34 pg/mL (<125); Potassium 4.4 mmol/L (3.5-5.1); Protein, Total 7.9 g/dL (6.4-8.2); Sodium Level 139 mmol/L (136-145); Troponin (Emerg Dept Use Only) < 0.02 ng/mL (0.0-0.045)
[2020-11-26 21:02] LABS: Urine Amorphous Sediment 1+ /HPF (NONE SEEN); Urine Bacteria <20 /HPF (<20); Urine Mucus 2+ /HPF (NONE SEEN)
[2020-11-26 21:44] LABS: Protime INR 1.03
[2020-11-26 21:53] LABS: SARS-COV-2 RT PCR POSITIVE (NEGATIVE)
[2020-11-26] MEDS ORDERED: ACETAMINOPHEN 500 MG TAB ONE (23:10)
--- NOTE | 2020-11-27 01:22 | ER ---
Nurse's Notes [facility] Name: Fabiola Solorzano Age: 65 yrs Sex: Female : 1955 Arrival Date: 11/26/2020 Time: 18:47 Bed 14 Private MD: Diagnosis: Other viral pneumonia;Pericardial effusion (noninflammatory);Dyspnea Presentation: 11/26 19:09 Chief complaint: Patient states: Pt coughing and diarrhea for about 3-4 days, ABD pain, ae4 h/a, and sinus drainage. Coronavirus screen: Client denies travel out of the [place] in the last 14 days. Client presents with at least one sign or symptom that may indicate coronavirus-19. Standard/surgical mask placed on the client. Ebola Screen: Patient negative for fever greater than or equal to 101.5 degrees Fahrenheit, and additional compatible Ebola Virus Disease symptoms. Initial Sepsis Screen: Does the patient meet any 2 criteria? RR > 20 per min. HR > 90 bpm. Yes Does the patient have a suspected source of infection?. Risk Assessment: Do you want to hurt yourself or someone else? Patient reports no desire to harm self or others. Onset of symptoms was November 23, 2020. 19:09 Method Of Arrival: Ambulatory ae4 19:09 Acuity: SHABBIR 3 ae4 Triage Assessment: 19:12 General: Appears in no apparent distress. uncomfortable, Behavior is calm, cooperative. ae4 Pain: Complains of pain in chest and abdomen. GI: Abdomen is flat, non-distended. Historical: - Allergies: 19:12 No Known Allergies; ae4 - Immunization history:: Adult Immunizations up to date. - Social history:: Smoking status: Patient denies any tobacco usage or history of. Screenin:30 Abuse screen: Denies threats or abuse. Denies injuries from another. Nutritional wh screening: No deficits noted. Tuberculosis screening: No symptoms or risk factors identified. Fall Risk None identified. Assessment: 19:30 General: Appears in no apparent distress. Behavior is calm, cooperative, appropriate wh for age. Pain: Denies pain. Neuro: Level of Consciousness is awake, alert, obeys commands, Oriented to person, place, time, situation, Appropriate for age. Cardiovascular: Heart tones S1 S2. Respiratory: Reports shortness of breath cough that is Airway is patent Respiratory effort is even, unlabored, Respiratory pattern is tachypnea Breath sounds are clear bilaterally. GI: Abdomen is flat, non-distended, Reports diarrhea. GI: Reports nausea. : No signs and/or symptoms were reported regarding the genitourinary system. EENT: No signs and/or symptoms were reported regarding the EENT system. Derm: Skin is intact, is healthy with good turgor, Skin is pink, warm \T\ dry. normal. Musculoskeletal: Circulation, motion, and sensation intact. 20:45 Reassessment: Patient appears in no apparent distress at this time. No changes from previously documented assessment. Patient and/or family updated on plan of care and expected duration. Pain level reassessed. Patient is alert, oriented x 3, equal unlabored respirations, skin warm/dry/pink. 22:50 Reassessment: Patient appears in no apparent distress at this time. Patient and/or family updated on plan of care and expected duration. Pain level reassessed. Patient is alert, oriented x 3, equal unlabored respirations, skin warm/dry/pink. 11/27 00:04 Reassessment: Patient appears in no apparent distress at this time. Patient and/or family updated on plan of care and expected duration. Pain level reassessed. Patient is alert, oriented x 3, equal unlabored respirations, skin warm/dry/pink. 02:00 Reassessment: Patient appears in no apparent distress at this time. Patient and/or family updated on plan of care and expected duration. Pain level reassessed. Patient is alert, oriented x 3, equal unlabored respirations, skin warm/dry/pink. Provider at bedside explaining POC need for admit. Vital Signs: 11/26 19:09 BP 132 / 88; Pulse 118; Resp 22; Temp 97.4; Pulse Ox 94% on R/A; Weight 83.91 kg; ae4 Height 5 ft. 7 in. (170.18 cm); Pain 5/10; 20:45 BP 119 / 71; Pulse 88; Resp 22; Pulse Ox 95% on R/A; wh 22:00 BP 138 / 77; Pulse 82; Resp 18; Pulse Ox 94% on R/A; 11/27 00:00 BP 123 / 73; Pulse 79; Resp 16; Pulse Ox 95% on R/A; wh 01:30 BP 131 / 73; Pulse 79; Resp 18; Pulse Ox 95% on R/A; wh 02:45 BP 132 / 57; Pulse 75; Resp 15; Pulse Ox 94% on R/A; wh 11/26 19:09 Body Mass Index 28.97 (83.91 kg, 170.18 cm) ae4 ED Course: 11/26 18:47 Patient arrived in ED. ds1 19:11 Triage completed. ae4 19:12 Arm band placed on. ae4 19:15 Karyn Paz, RN is Primary Nurse. wh 19:30 Patient has correct armband on for positive identification. Placed in gown. Bed in low wh position. Call light in reach. Side rails up X 1. vehicle monitor technician on. Pulse ox on. NIBP on. 19:34 Damian Rosales PA is PHCP. cp 19:34 Sergio Spear MD is Attending Physician. cp 19:45 Inserted saline lock: 20 gauge in right forearm, using aseptic technique. Blood wh collected. 20:07 XRAY Chest (1 view) In Process Unspecified. EDMS 21:47 Notified Nurse Practitioner and/or Physician Coating Supervisor of a critical lab result(s), bb D-Dimer of [id number] Damian PFEIFFER notified. 23:30 Chest For PE Angio CT In Process Unspecified. EDMS 23:30 CT Abd/Pelvis - IV Contrast Only In Process Unspecified. EDMS 11/27 00:20 Initiated transfer at [facility] with Letty Osiel. Stated she would do a bed check tt3 and call back. 00:38 Letty Cartagena called back and stated that the transfer request was denied due to no tt3 beds. 00:39 Initiated transfer at [facility] with Sydnee Bryon. Stated she would do a bed tt3 check and call back. 00:43 Letty Osiel called back and stated that the other campuses had to decline. Two due to tt3 not having the needed services and the last due to no beds. 00:55 Sydnee Slater from [facility] called back and stated that the transfer request was tt3 denied due to no beds. 01:20 Robert Prado PA is Hospitalizing Provider. cp 01:21 Hospitalizing Provider role handed off by Robert Prado PA cp 01:21 Navi Strong DO is Hospitalizing Provider. cp 03:02 No provider procedures requiring assistance completed. Patient admitted, IV remains in place. Administered Medications: 11/26 20:20 Drug: Tessalon Perle (benzonatate) 200 mg Route: PO; 20:51 Follow up: Response: No adverse reaction 20:22 Drug: Zofran (Ondansetron) 4 mg Route: IVP; Site: right forearm; 20:51 Follow up: Response: No adverse reaction; Nausea is decreased 20:24 Drug: Pepcid (famotidine) 20 mg Route: IVP; Site: right forearm; 20:51 Follow up: Response: No adverse reaction 20:26 Drug: SOLU-Medrol (methylPrednisoLONE) 125 mg Route: IVP; Site: right forearm; 20:51 Follow up: Response: No adverse reaction 22:54 Drug: Tylenol 1000 mg Route: PO; 11/27 02:28 Follow up: Response: No adverse reaction; Pain is decreased Outcome: 01:21 Decision to Hospitalize by Provider. cp 03:03 Admitted to ICU accompanied by [facility], via wheelchair, room 3, with chart, Report called to Lindsay Doran RN 03:03 Condition: stable 03:03 Instructed on the need for admit. 04:00 Patient left the ED. Signatures: Dispatcher [employer] EDMS Shanel Bae ds1 Jenn Staley RN RN bb Damian Rosales PA PA Karyn Paz RN RN Gera Martin RN RN ae4 Damien Smallwood tt3 Corrections: (The following items were deleted from the chart) 03:02 02:45 BP 132 / 57; Pulse 15bpm; Resp 75bpm; Pulse Ox 94% RA; [facility]
--- NOTE | 2020-11-27 01:22 | EDPHYS ---
Physician Documentation [facility] Name: Fabiola Solorzano Age: 65 yrs Sex: Female : 1955 Arrival Date: 11/26/2020 Time: 18:47 Bed 14 Private MD: ED Physician Sergio Spear HPI: 11/26 20:00 This 65 yrs old Female presents to ER via Ambulatory with complaints of cp Cough, Diarrhea, Shortness Of Breath. 20:00 The patient has shortness of breath with light activity. Onset: The symptoms/episode cp began/occurred gradually, and became worse today. 20:00 Duration: The symptoms are continuous, and are steadily getting worse. Associated signs cp and symptoms: Pertinent positives: non-productive cough, diarrhea, Pertinent negatives: chest pain, fever, vomiting. Patient reports recently diagnosed with COVID-19. Cough started about 4 days ago and has been getting worse. Historical: - Allergies: 19:12 No Known Allergies; ae4 - Immunization history:: Adult Immunizations up to date. - Social history:: Smoking status: Patient denies any tobacco usage or history of. ROS: 20:00 Constitutional: Negative for body aches, chills, fever, poor PO intake. cp 20:00 Eyes: Negative for injury, pain, redness, and discharge. cp 20:00 ENT: Negative for ear pain, sore throat, difficulty swallowing, difficulty handling secretions. 20:00 Cardiovascular: Negative for chest pain, edema, palpitations. 20:00 Respiratory: Positive for cough, "sounds productive", shortness of breath, on exertion. dyspnea, Negative for wheezing. 20:00 Abdomen/GI: Positive for nausea, diarrhea, Negative for abdominal pain, constipation. 20:00 : Negative for urinary symptoms. 20:00 Neuro: Positive for near syncope, weakness, Negative for altered mental status, headache, syncope. 20:00 All other systems are negative. Exam: 20:00 ECG was reviewed by the Attending Physician. cp 20:05 Constitutional: The patient appears in no acute distress, alert, awake, cp non-diaphoretic, non-toxic, well developed, well nourished, uncomfortable. 20:05 Head/Face: Normocephalic, atraumatic. cp 20:05 Eyes: Periorbital structures: appear normal, Conjunctiva: normal, no exudate, no injection, Sclera: no appreciated abnormality, Lids and lashes: appear normal, bilaterally. 20:05 ENT: External ear(s): are unremarkable, Nose: is normal, Mouth: Lips: moist, Oral mucosa: pink and intact, moist, Posterior pharynx: Airway: no evidence of obstruction, patent. 20:05 Neck: ROM/movement: is normal, is supple, without pain, no range of motions limitations, no meningismus. 20:05 Chest/axilla: Inspection: normal, Palpation: is normal, no crepitus, no tenderness. 20:05 Cardiovascular: Rate: tachycardic, Rhythm: regular, Edema: is not appreciated, JVD: is not appreciated. 20:05 Respiratory: the patient does not display signs of respiratory distress, Respirations: shallow respirations, that is mild, Breath sounds: bronchial sounds, that are mild, are heard diffusely, decreased breath sounds, are not appreciated, stridor, is not appreciated, + upper airway congestion. wheezing: is not appreciated. 20:05 Abdomen/GI: Inspection: abdomen appears normal, Bowel sounds: active, all quadrants, Palpation: soft, in all quadrants, mild abdominal tenderness, in the right upper quadrant and left lower quadrant, rebound tenderness, is not appreciated, involuntary guarding, is not appreciated. 20:05 Skin: no rash present. 20:05 Neuro: Orientation: to person, place \\T\\ time. Mentation: is normal, Cerebellar function: is grossly normal, Motor: moves all fours, strength is normal, Sensation: is normal. Vital Signs: 19:09 BP 132 / 88; Pulse 118; Resp 22; Temp 97.4; Pulse Ox 94% on R/A; Weight 83.91 kg; ae4 Height 5 ft. 7 in. (170.18 cm); Pain 5/10; 20:45 BP 119 / 71; Pulse 88; Resp 22; Pulse Ox 95% on R/A; wh 22:00 BP 138 / 77; Pulse 82; Resp 18; Pulse Ox 94% on R/A; wh 11/27 00:00 BP 123 / 73; Pulse 79; Resp 16; Pulse Ox 95% on R/A; wh 01:30 BP 131 / 73; Pulse 79; Resp 18; Pulse Ox 95% on R/A; wh 02:45 BP 132 / 57; Pulse 75; Resp 15; Pulse Ox 94% on R/A; 11/26 19:09 Body Mass Index 28.97 (83.91 kg, 170.18 cm) ae4 MDM: 11/26 19:46 Patient medically screened. cp 20:00 Differential diagnosis: pneumonia, pulmonary edema, Pulmonary Embolism Sepsis. 11/27 01:00 Data reviewed: vital signs, nurses notes, lab test result(s), EKG, radiologic studies, cp CT scan, plain films, I have discussed the patient's presentation/case with the attending Emergency Department Physician; and as a result, I will admit patient. 01:02 Physician consultation: Robert PFEIFFER was called at 00:55, was contacted at 00:55, cp regarding admission, to the telemetry unit. patient's condition, and will see patient in ED, shortly. 11/26 19:45 Order name: COVID-19 : Document "Date of Symptom Onset" if Symptomatic. 11/26 19:45 Order name: Influenza Screen (a \\T\\ B) 11/26 19:45 Order name: Basic Metabolic Panel 11/26 19:45 Order name: CBC with Diff; Complete Time: 20:49 11/26 19:45 Order name: LFT's; Complete Time: 20:49 11/26 20:50 Interpretation: Normal except: ALK 186; GLOB 4.1; A/G 0.9. 11/26 19:45 Order name: Magnesium; Complete Time: 20:49 11/26 19:45 Order name: NT PRO-BNP; Complete Time: 20:49 11/26 19:45 Order name: PT-INR; Complete Time: 21:48 11/26 19:45 Order name: Troponin (emerg Dept Use Only); Complete Time: 20:49 cp 11/26 19:45 Order name: CRP; Complete Time: 20:49 11/26 20:50 Interpretation: Abnormal: C-REACTIVE PROT 18.00. 11/26 19:45 Order name: D-Dimer; Complete Time: 21:48 11/26 19:45 Order name: Urine Microscopic Only; Complete Time: 21:48 11/26 19:46 Order name: Influenza Screen (A EDMS 11/26 19:45 Order name: XRAY Chest (1 view); Complete Time: 20:26 11/26 20:26 Interpretation: Report reviewed. 11/26 19:45 Order name: EKG; Complete Time: 19:46 11/26 19:45 Order name: Cardiac monitoring; Complete Time: 20:52 cp 11/26 19:45 Order name: EKG - Nurse/Tech; Complete Time: 20:52 11/26 19:45 Order name: IV Saline Lock; Complete Time: 20:52 11/26 19:45 Order name: Labs collected and sent; Complete Time: 20:52 cp 11/26 19:46 Order name: Basic Metabolic Panel; Complete Time: 20:49 EDMS 11/26 20:50 Interpretation: Normal except: GFR 85. 11/26 20:31 Order name: Urine Dipstick-Ancillary; Complete Time: 20:49 EDMS 11/26 21:48 Order name: Chest For PE Angio CT 11/26 21:48 Order name: CT Abd/Pelvis - IV Contrast Only 11/26 21:53 Order name: COVID-19/FLU A+B; Complete Time: 23:01 EDMS 11/26 19:45 Order name: O2 Per Protocol; Complete Time: 20:52 cp 11/26 19:45 Order name: O2 Sat Monitoring; Complete Time: 20:52 11/26 19:45 Order name: Urine Dipstick-Ancillary (obtain specimen); Complete Time: 20:52 cp EC/23 20:00 Rate is 108 beats/min. Rhythm is regular. ND interval is normal. QRS interval is cp normal. QT interval is normal. T waves are Inverted in leads aVL, aVR, V2. Interpreted by me. Reviewed by me. Administered Medications: 20:20 Drug: Tessalon Perle (benzonatate) 200 mg Route: PO; wh 20:51 Follow up: Response: No adverse reaction wh 20:22 Drug: Zofran (Ondansetron) 4 mg Route: IVP; Site: right forearm; wh 20:51 Follow up: Response: No adverse reaction; Nausea is decreased wh 20:24 Drug: Pepcid (famotidine) 20 mg Route: IVP; Site: right forearm; wh 20:51 Follow up: Response: No adverse reaction 20:26 Drug: SOLU-Medrol (methylPrednisoLONE) 125 mg Route: IVP; Site: right forearm; 20:51 Follow up: Response: No adverse reaction 22:54 Drug: Tylenol 1000 mg Route: PO; 11/27 02:28 Follow up: Response: No adverse reaction; Pain is decreased Disposition: 04:35 Co-signature as Attending Physician, Sergio Spear MD. [email or web address] Disposition: 11/27/20 01:21 Hospitalization ordered by Navi Strong for Inpatient Admission. Preliminary diagnosis are Other viral pneumonia, Pericardial effusion (noninflammatory), Dyspnea. - Bed requested for Intensive Care Unit. - Status is Inpatient Admission. - Condition is Stable. - Problem is new. - Symptoms have improved. Signatures: Dispatcher [employer] [facility] Marcia Richard RN RN mw Lam, Pin, MD MD pkDamian Duran PA PA Karyn Paz RN RN Gera Martin RN RN ae4 Corrections: (The following items were deleted from the chart) 11/26 20:52 19:46 CORONAVIRUS ordered. [facility] 11/27 01:21 01:21 Hospitalization Ordered by Robert PFEIFFER for Inpatient Admission. Preliminary cp diagnosis is Other viral pneumonia; Pericardial effusion (noninflammatory); Dyspnea. Bed requested for Telemetry/MedSurg (Inpatient). Status is Inpatient Admission. Condition is Stable. Problem is new. Symptoms have improved. 02:19 01:21 11/27/2020 01:21 Hospitalization Ordered by Navi Strong DO for Inpatient Admission. Preliminary diagnosis is Other viral pneumonia; Pericardial effusion (noninflammatory); Dyspnea. Bed requested for Telemetry/MedSurg (Inpatient). Status is Inpatient Admission. Condition is Stable. Problem is new. Symptoms have improved. 04:00 02:19 11/27/2020 01:21 Hospitalization Ordered by Navi Strong DO for Inpatient Admission. Preliminary diagnosis is Other viral pneumonia; Pericardial effusion (noninflammatory); Dyspnea. Bed requested for Intensive Care Unit. Status is Inpatient Admission. Condition is Stable. Problem is new. Symptoms have improved.
--- NOTE | 2020-11-27 02:32 | P.HP ---
Certification for Inpatient Patient admitted to: Observation With expected LOS: <2 Midnights Patient will require the following post-hospital care: None Practitioner: I am a practitioner with admitting privileges, knowledge of patient current condition, hospital course, and medical plan of care. Services: Services provided to patient in accordance with Admission requirements found in Title 42 Section 412.3 of the Code of Federal Regulations Patient History Date of Service: 11/27/20 Primary Care Provider: Will Reason for admission: pericardial effusion, covid pneumonia History of Present Illness: Ms. Solorzano is a 65 yo F here today with COVID+ diagnosis and symptoms for the past 13 days. Today, she reports chest pain, SOB, ALBRECHT, cough, and wheezing. She says today the pain worsened to the point that she felt she would pass out. Chest pain is worse when lying flat. Reports nausea, vomiting, diarrhea (5-8x a day), night sweats, and weakness. Denies hemoptysis. Her is currently admitted to the hospital for COVID pneumonia. Allergies No Known Allergies Allergy (Unverified 11/12/17 10:11) Home Medications: Aspirin 81 mg PO 11/12/17 B Complex with Vitamin C [Super B-Complex & C] 1 each PO 11/12/17 Biotin 10,000 mcg PO 11/12/17 Cyanocobalamin (Vitamin B-12) [Vitamin B-12] 5,000 mcg SL 11/12/17 Iron 11/12/17 Vit C/E/Zn/Coppr/Lutein/Zeaxan [Preservision Areds 2 Softgel] 1 each PO 11/12/17 - Past Medical/Surgical History Has patient received pneumonia vaccine in the past: No Diabetic: No Past Medical History: Patient denies medical history Past Surgical History: Patient denies surgical history - Family History Family History: Reviewed- Non-Contributory - Social History Smoking Status: Never smoker Alcohol use: No CD- Drugs: No Caffeine use: No Place of Residence: Home Review of Systems General: Sweats, Weakness, As per HPI Eyes: Unremarkable ENT: Unremarkable Respiratory: Cough, Shortness of Breath, SOB with Excertion, Pleuritic Pain, Sputum, Wheezing, As per HPI Cardiovascular: Chest Pain, As per HPI Gastrointestinal: Nausea, Vomiting, Diarrhea Genitourinary: Unremarkable Musculoskeletal: Unremarkable Integumentary: Unremarkable Neurological: Unremarkable Lymphatics: Unremarkable Physical Examination - Physical Exam General: Alert, In no apparent distress, Oriented x3, Cooperative HEENT: Atraumatic, Normocephalic, PERRLA, Mucous membr. moist/pink, EOMI, Sclerae nonicteric Neck: Supple, 2+ carotid pulse no bruit, JVD not distended, No Thyromegaly, No LAD Respiratory: Clear to auscultation bilaterally, Expiratory wheezes Cardiovascular: No edema, Normal pulses, Regular rate/rhythm, Normal S1 S2, No gallops, No rubs, No murmurs Capillary refill: <2 Seconds Gastrointestinal: Normal bowel sounds, Soft and benign, Non-distended, No ascites, No tenderness, No masses, No rebound, No guarding Musculoskeletal: No clubbing, No swelling, No contractures, No erythema, No tenderness, No warmth Integumentary: No rashes, No breakdown, No significant lesion, No tenderness/swelling, No erythema, No warmth, No cyanosis Neurological: Normal speech, Normal strength at 5/5 x4 extr, Normal tone, Sensation intact, Cranial nerves 3-12 intact, Normal affect Lymphatics: No axilla or inguinal lymphadenopathy - Studies Laboratory Data (last 24 hrs) 11/26/20 20:15: PT 11.9, INR 1.03 11/26/20 20:15: WBC 6.50, Hgb 13.7, Hct 40.4, Plt Count 234 11/26/20 20:15: Sodium 139, Potassium 4.4, BUN 17, Creatinine 0.69, Glucose 103, Magnesium 2.4, Total Bilirubin 0.3, AST 33, ALT 46, Alkaline Phosphatase 186 H Assessment and Plan - Problems (Diagnosis) (1) Pneumonia due to COVID-19 virus Current Visit: Yes Status: Acute (2) Pericardial effusion without cardiac tamponade Current Visit: Yes Status: Acute - Plan ECHO in the AM ESR pending continue Ibuprofen, Protonix Zofran and tessalon perles prn covid supplements currently stable on room air DVT ppx Discharge Plan: Home Plan to discharge in: 24 Hours - Advance Directives Does patient have a Living Will: No Does patient have a Durable POA for Healthcare: No - Code Status/Comfort Care Code Status Assessed: Yes (full code) Critical Care: No Time Spent Managing Pts Care (In Minutes): 70
[2020-11-27] MEDS ORDERED: NA CHLORIDE 0.9% 1,000 ML ONE (04:09)
[2020-11-27] MEDS ORDERED: ONDANSETRON 4 MG/2 ML VIAL IV PRN (04:24)
[2020-11-27] MEDS ORDERED: IBUPROFEN 600 MG TAB PO PRN (04:24)
[2020-11-27] MEDS: NA CHLORIDE 0.9% 1,000 ML IV SCH ×2 (04:30→23:21)
[2020-11-27 05:06] VITALS: BMI 30.6
[2020-11-27 05:10] LABS: Absolute Lymphocytes (CBC) 1.4 K/uL (0.7-4.9); Basophils % 0.3 % (0-1.3); Hematocrit 40.8 % (36.0-45.0); Lymphocytes % 31.1 % (15.3-44.8); MPV 7.9 fL (7.6-11.3); RBC Red Blood Cell Count 4.86 M/uL (3.86-4.86)
[2020-11-27] MEDS: BENZONATATE 100 MG CAP PO PRN ×3 (05:11→14:28)
[2020-11-27 05:38] LABS: ALT/SGPT 42 U/L (12-78); AST/SGOT 26 U/L (15-37); Albumin 3.6 g/dL (3.4-5.0); Alkaline Phosphatase 177 U/L (45-117); BUN Blood Urea Nitrogen 15 mg/dL (7-18); Bicarbonate 23 mmol/L (21-32); Bilirubin Total 0.2 mg/dL (0.2-1.0); Ferritin 284.9 ng/mL (8-388); Glucose Level 173 mg/dL (74-106); Magnesium 2.5 mg/dL (1.8-2.4); Phosphorus 3.5 mg/dL (2.5-4.9); Potassium 4.1 mmol/L (3.5-5.1); Protein, Total 7.7 g/dL (6.4-8.2); Sodium Level 140 mmol/L (136-145)
[2020-11-27 06:49] LABS: Urine Appearance CLEAR (Clear); Urine Bilirubin NEGATIVE (Negataive); Urine Blood NEGATIVE (Negative); Urine Color YELLOW (Yellow); Urine Glucose NEGATIVE (Negative); Urine Microscopic Reflex NO UMIC; Urine Protein NEGATIVE (Negative); Urine Specific Gravity >=1.030 (1.005-1.030); Urine Urobilinogen 0.2 mg/dL (0.2-1.0); Urine pH 5.5 (5.0-7.0)
[2020-11-27] MEDS: PANTOPRAZOLE 40MG TABLET PO SCH ×2 (08:45→17:29)
[2020-11-27] MEDS: ENOXAPARIN 40 MG/0.4 ML SQ SCH (08:45)
[2020-11-27] MEDS: ZINC SULFATE 220 MG CAP PO SCH (08:45)
[2020-11-27] MEDS: THIAMINE HCL 100 MG TABLET PO SCH (08:45)
[2020-11-27] MEDS: ASCORBIC ACID 500 MG TABLET PO SCH ×4 (08:45→20:05)
[2020-11-27] MEDS: VITAMIN D 1000 UNIT TAB PO SCH (08:59)
--- NOTE | 2020-11-27 10:13 | RAD REPORT ---
EXAM DESCRIPTION: CT - Chest For Pe Angio - 11/27/2020 4:49 am CLINICAL HISTORY: Cough;SOB. COMPARISON: None. TECHNIQUE: CTA of the chest was performed following intravenous administration of iodinated contrast . Axial soft tissue and bone window, and coronal and sagittal soft tissue window reconstructions were created and sent to PACS. 3D postprocessing was performed on an independent workstation, with images sent to PACS for subsequen t review. This exam was performed according to our departmental dose-optimization program, which includes autom ated exposure control, adjustment of the mA and/or kV according to patient size and/or use of iterati ve reconstruction technique. FINDINGS: Vascular: Suboptimal evaluation of the distal pulmonary arteries due to streak artifact. N o CT evidence of central acute pulmonary thromboembolism. No evidence of aortic aneurysm or dissectio n. Lungs and pleura: Small patchy regions of peripheral interstitial thickening/groundglass opacificatio n. No dense pulmonary consolidation. No pleural effusion. No pneumothorax. Mediastinum and neck: No mediastinal lymphadenopathy by CT size criteria. Unremarkable appearance of the thyroid gland. Cardiac: No cardiomegaly. Medium sized pericardial effusion. Abdomen: No significant upper abdominal abnormality identified. Musculoskeletal: No concerning osseous abnormality. IMPRESSION: 1. Suboptimal evaluation of the distal pulmonary arteries due to streak artifact. No C T evidence of central acute pulmonary thromboembolism. 2. Small patchy regions of peripheral interstitial thickening/groundglass opacification. Correlate for infectious/inflammatory change. 3. Medium sized pericardial effusion. Electronically signed by: Salima Staples MD 11/26/2020 11:56 PM CDT Due to temporary technical issues with the PACS/Fluency reporting system, reports are being signed by the in house radiologists without review as a courtesy to insure prompt reporting. The interpreting radiologist is fully responsible for the content of the report.
--- NOTE | 2020-11-27 10:15 | RAD REPORT ---
EXAM DESCRIPTION: CT - Abdomen Pelvis W Contrast - 11/27/2020 4:45 am CLINICAL HISTORY: The patient is 65 years old and is Female; ABD PAIN TECHNIQUE: Axial computed tomography images of the abdomen and pelvis with intravenous contrast. S agittal and coronal reformatted images were created and reviewed. This CT exam was performed using one or more of the following dose reduction techniques: automated exposure control, adjustment of t he mA and/or kV according to patient size, and/or use of iterative reconstruction technique. COMPARISON: No relevant prior studies available. FINDINGS: Lung bases: Bibasilar atelectasis. Heart: Partially visualized moderate pericardial effusion. ABDOMEN: Liver: 1.1 cm cyst in the left liver. Gallbladder and bile ducts: Unremarkable. No calcified stones. No ductal dilation. Pancreas: Unremarkable. No mass. No ductal dilation. Spleen: Unremarkable. No splenomegaly. Adrenals: Unremarkable. No mass. Kidneys and ureters: Unremarkable. No solid mass. No hydronephrosis. Stomach and bowel: Unremarkable. No obstruction. No mucosal thickening. PELVIS: Appendix: No findings to suggest acute appendicitis. Bladder: Unremarkable. No mass. Reproductive: Unremarkable as visualized. ABDOMEN and PELVIS: Intraperitoneal space: Unremarkable. No free air. No significant fluid collection. Bones/joints: No acute fracture. No dislocation. Soft tissues: Unremarkable. Vasculature: Unremarkable. No abdominal aortic aneurysm. Lymph nodes: Unremarkable. No enlarged lymph nodes. IMPRESSION: 1. Partially visualized moderate pericardial effusion. 2. No acute findings in the abdomen/pelvis. Electronically signed by: eBrt Torre MD 11/27/2020 12:54 AM CDT Due to temporary technical issues with the PACS/Fluency reporting system, reports are being signed by the in house radiologists without review as a courtesy to insure prompt reporting. The interpreting radiologist is fully responsible for the content of the report.
--- NOTE | 2020-11-27 14:15 | ECHO ---
HEIGHT: 5 ft 7 in WEIGHT: 195 lb 8 oz DATE OF STUDY: 11/27/[address]: Robert Prado 2-DIMENSIONAL: YES M.MODE: YES DOPPLER: YES COLOR FLOW: YES TDS: PORTABLE: DEFINITY: BUBBLE STUDY: DIAGNOSIS: PERICARDIAL EFFUSION CARDIAC HISTORY: CATHERIZATION: SURGERY: PROSTHETIC VALVE: PACEMAKER: MEASUREMENTS (cm) DIASTOLIC (NORMALS) SYSTOLIC (NORMALS) IVSd 1.1 (0.6-1.2) LA Diam 2.8 (1.9-4.0) LVEF 55-60% LVIDd 4.0 (3.5-5.7) LVIDs 2.2 (2.0-3.5) %FS 43% LVPWd 1.1 (0.6-1.2) Ao Diam 2.7 (2.0-3.7) 2 DIMENSIONAL ASSESSMENT: RIGHT ATRIUM: NORMAL LEFT ATRIUM: NORMAL RIGHT VENTRICLE: NORMAL LEFT VENTRICLE: NORMAL TRICUSPID VALVE: NORMAL MITRAL VALVE: NORMAL PULMONIC VALVE: NORMAL AORTIC VALVE: NORMAL PERICARDIAL EFFUSION: SMALL TO MODERATE AORTIC ROOT: NORMAL LEFT VENTRICULAR WALL MOTION: NORMAL DOPPLER/COLOR FLOW: NORMAL COMMENTS: NORMAL LEFT VENTRICULAR EJECTION FRACTION 55-60% WITH NORMAL WALL MOTION. SMALL TO MODERATE PERICARDIAL EFFUSION. TECHNOLOGIST: SAM DOTSON
[2020-11-27 15:01] LABS: C.diff Antigen/Toxin Ag neg : Tox neg (NEG : NEG)
[2020-11-27] MEDS ORDERED: LOPERAMIDE HCL 2 MG CAPSULE PO STA (15:59)
[2020-11-27] MEDS: guaiFENesin 100 MG/5 ML UCUP PO PRN (18:50)
[2020-11-27] MEDS: IBUPROFEN 400 MG TAB PO PRN (18:51)
--- NOTE | 2020-11-27 19:53 | P.PN ---
Subjective Date of Service: 11/27/20 Primary Care Provider: Will Chief Complaint: pericardial effusion, covid pneumonia Patient with intermittent chest pain. She is also coughing. CTA thorax showed patchy infiltrates. Patient is tolerating room air with borderline oxygen saturation. Echocardiogram shows small to moderate pericardial effusion. Pneumonia due to COVID 19 Pericardial effusion Plan: Supportive measures-NSAIDS, steroid. Patient is very anxious about going home today. Monitor overnight and possible Dc a.m. Physical Examination - Vital Signs Temperature: 98.4 F Blood Pressure: 136/88 Pulse: 71 Respirations: 20 Pulse Ox (%): 92 - Studies Laboratory Data (last 24 hrs) 11/26/20 20:15: PT 11.9, INR 1.03 11/26/20 20:15: WBC 6.50, Hgb 13.7, Hct 40.4, Plt Count 234 11/26/20 20:15: Sodium 139, Potassium 4.4, BUN 17, Creatinine 0.69, Glucose 103, Magnesium 2.4, Total Bilirubin 0.3, AST 33, ALT 46, Alkaline Phosphatase 186 H
[2020-11-27] MEDS: predniSONE 20 MG TAB PO SCH (20:05)
[2020-11-27 23:01] VITALS: O2SAT 93
[2020-11-28] MEDS: IBUPROFEN 400 MG TAB PO PRN (01:56)
[2020-11-28] MEDS: guaiFENesin 100 MG/5 ML UCUP PO PRN ×2 (01:57→07:29)
[2020-11-28 05:06] LABS: Absolute Lymphocytes (CBC) 1.4 K/uL (0.7-4.9); Basophils % 0.1 % (0-1.3); Hematocrit 36.3 % (36.0-45.0); Lymphocytes % 13.7 % (15.3-44.8); MPV 8.4 fL (7.6-11.3); RBC Red Blood Cell Count 4.32 M/uL (3.86-4.86)
[2020-11-28 05:13] VITALS: TEMP 97.4
[2020-11-28 05:18] LABS: ALT/SGPT 34 U/L (12-78); AST/SGOT 21 U/L (15-37); Albumin 3.1 g/dL (3.4-5.0); Alkaline Phosphatase 136 U/L (45-117); BUN Blood Urea Nitrogen 18 mg/dL (7-18); Bicarbonate 26 mmol/L (21-32); Bilirubin Total 0.3 mg/dL (0.2-1.0); Ferritin 207.4 ng/mL (8-388); Glucose Level 124 mg/dL (74-106); Magnesium 2.3 mg/dL (1.8-2.4); Phosphorus 3.4 mg/dL (2.5-4.9); Potassium 4.3 mmol/L (3.5-5.1); Protein, Total 6.5 g/dL (6.4-8.2); Sodium Level 144 mmol/L (136-145)
[2020-11-28] MEDS: THIAMINE HCL 100 MG TABLET PO SCH (07:29)
[2020-11-28] MEDS: BENZONATATE 100 MG CAP PO PRN (07:29)
[2020-11-28] MEDS: VITAMIN D 1000 UNIT TAB PO SCH (07:29)
[2020-11-28] MEDS: ENOXAPARIN 40 MG/0.4 ML SQ SCH (07:30)
[2020-11-28] MEDS: PANTOPRAZOLE 40MG TABLET PO SCH (07:30)
[2020-11-28] MEDS: ZINC SULFATE 220 MG CAP PO SCH (07:30)
[2020-11-28] MEDS: ASCORBIC ACID 500 MG TABLET PO SCH ×2 (07:30→12:11)
[2020-11-28] MEDS: predniSONE 20 MG TAB PO SCH (09:04)
--- NOTE | 2020-11-28 11:03 | P.DS ---
Admission Date: 11/27/20 Discharge Date: 11/28/20 Primary Care Provider: Will Disposition: ROUTINE DISCHARGE Discharge Condition: GOOD Reason for Admission: pericardial effusion, covid pneumonia Procedures: CXR (11/26): lungs appear clear of acute infiltrate. The heart is borderline enlarged CT Abd/Pelvis (11/26): Partially visualized moderate pericardial effusion. 2. No acute findings in the abdomen/pelvis. CTA Chest (11/26): 1. Suboptimal evaluation of the distal pulmonary arteries due to streak artifact. No CT evidence of central acute pulmonary thromboembolism. 2. Small patchy regions of peripheral interstitial thickening/groundglass opacification. Correlate for infectious/inflammatory change. 3. Medium sized pericardial effusion. TTE (11/27): normal LVEF: 55-60%, normal wall motion. small-moderate pericardial effusion. Problem List: Pneumonia due to COVID 19 Pericardial effusion without cardiac tamponade Brief History of Present Illness: Ms. Solorzano is a 65 yo F here today with COVID+ diagnosis and symptoms for the past 13 days. Today, she reports chest pain, SOB, ALBRECHT, cough, and wheezing. She says today the pain worsened to the point that she felt she would pass out. Chest pain is worse when lying flat. Reports nausea, vomiting, diarrhea (5-8x a day), night sweats, and weakness. Denies hemoptysis. Her is currently admitted to the hospital for COVID pneumonia. Hospital Course: Patient was empirically treated for COVID-19 pneumonia. She did not require oxygen supplementation. Her symptoms improved and she was discharged home. Cardiology was consulted regarding her pericardial effusion. They felt patient did not require further intervention at this time and she will follow up in the office. Follow up with PCP in 3-5 days. Follow up with Dr. Foster in ~1 week. Vital Signs/Physical Exam: Temp Pulse Resp BP Pulse Ox 97.4 F 79 19 152/82 H 93 11/28/20 04:00 11/28/20 08:00 11/28/20 04:00 11/28/20 08:00 11/28/20 04:00 General: Alert, In no apparent distress, Oriented x3 HEENT: Mucous membr. moist/pink, Sclerae nonicteric Neck: Supple Respiratory: Diminished Cardiovascular: No edema, Normal pulses, Regular rate/rhythm Gastrointestinal: Soft and benign, Non-distended, No tenderness Musculoskeletal: No contractures, No tenderness Integumentary: No rashes, No breakdown Neurological: Normal speech, Normal affect Laboratory Data at Discharge: WBC 10.20 K/uL (4.3-10.9) D 11/28/20 04:35 Hgb 12.2 g/dL (12.0-15.0) 11/28/20 04:35 Hct 36.3 % (36.0-45.0) 11/28/20 04:35 Plt Count 242 K/uL (152-406) 11/28/20 04:35 PT 11.9 SECONDS (9.5-12.5) 11/26/20 20:15 INR 1.03 11/26/20 20:15 Sodium 144 mmol/L (136-145) 11/28/20 04:35 Potassium 4.3 mmol/L (3.5-5.1) 11/28/20 04:35 BUN 18 mg/dL (7-18) 11/28/20 04:35 Creatinine 0.55 mg/dL (0.55-1.3) 11/28/20 04:35 Glucose 124 mg/dL (74-106) H 11/28/20 04:35 Phosphorus 3.4 mg/dL (2.5-4.9) 11/28/20 04:35 Magnesium 2.3 mg/dL (1.8-2.4) 11/28/20 04:35 Total Bilirubin 0.3 mg/dL (0.2-1.0) 11/28/20 04:35 AST 21 U/L (15-37) 11/28/20 04:35 ALT 34 U/L (12-78) 11/28/20 04:35 Alkaline Phosphatase 136 U/L (45-117) H 11/28/20 04:35 Home Medications: RX: Aspirin 81 mg PO DAILY 11/12/17 RX: B Complex with Vitamin C [Super B-Complex & C] 1 tab PO DAILY 11/12/17 RX: Biotin 10,000 mcg PO DAILY 11/12/17 RX: Cyanocobalamin (Vitamin B-12) [Vitamin B-12] 5,000 mcg SL DAILY 11/12/17 RX: Iron 1 tab PO DAILY 11/12/17 RX: Vit C/E/Zn/Coppr/Lutein/Zeaxan [Preservision Areds 2 Softgel] 1 cap PO DAILY 11/12/17 RX: Echinacea 380 mg PO DAILY 11/27/20 RX: Magnesium Carb,Citrate,Oxide [Magnesium Complex] 300 mg PO DAILY 11/27/20 RX: Ascorbic Acid [Vitamin C*] 500 mg PO QID 30 Days #120 tablet 11/28/20 RX: Benzonatate [Tessalon Perle*] 100 mg PO TID PRN 7 Days #21 cap 11/28/20 RX: Cholecalciferol (Vitamin D3) [Vitamin D 1000 Iu Tab*] 4,000 unit PO DAILY 30 Days #120 tab 11/28/20 RX: Pantoprazole [Protonix Tab*] 40 mg PO BIDAC 30 Days #60 tab 11/28/20 RX: Thiamine HCl [Vitamin B-1*] 200 mg PO DAILY 30 Days #60 tablet 11/28/20 RX: Zinc Sulfate [Zinc Sulfate*] 220 mg PO DAILY 30 Days #30 cap 11/28/20 RX: predniSONE [Prednisone*] 20 mg PO SEECOM 14 Days #21 tab 11/28/20 New Medications: RX: predniSONE [Prednisone*] 20 mg PO SEECOM 14 Days #21 tab RX: Pantoprazole [Protonix Tab*] 40 mg PO BIDAC 30 Days #60 tab RX: Benzonatate [Tessalon Perle*] 100 mg PO TID PRN 7 Days #21 cap PRN Reason: Cough RX: Thiamine HCl [Vitamin B-1*] 200 mg PO DAILY 30 Days #60 tablet RX: Ascorbic Acid [Vitamin C*] 500 mg PO QID 30 Days #120 tablet RX: Cholecalciferol (Vitamin D3) [Vitamin D 1000 Iu Tab*] 4,000 unit PO DAILY 30 Days #120 tab RX: Zinc Sulfate [Zinc Sulfate*] 220 mg PO DAILY 30 Days #30 cap Physician Discharge Instructions: You were found to have mild COVID-19 pneumonia and treated with steroids and vitamin supplementation. You had improvement of your symptoms and inflammatory markers. You did not require oxygen. You are discharged to continue steroids and vitamin supplementation. You were found to have a small pericardial effusion (some fluid around your heart). You were evaluated by echocardiogram and Cardiology - recommended follow up in their office in 3-4 weeks. The effusion and COVID can be causing your chest discomfort. Recommend taking scheduled ibuprofen 600mg twice a day for 1 week, then as needed for pain after that. You were also started on Protonix (pantoprazole) as some of your symptoms were consistent with gastritis, you are discharged with a prescription for one month. Please follow up with Dr. Foster in ~1 week - call his office to schedule appointment Please follow up with your PCP in ~1 week. Diet: Regular Activity: Ad xiang Followup: Adrian Solis, [Primary Care Provider] - (call to schedule appointment) Time spent managing pt's care (in minutes): 35
[2020-11-28 14:25] VITALS: BP 164/83
--- NOTE | 2020-11-28 21:38 | CON ---
Date of Consultation: 11/28/2020 Reason For Consultation: Pericardial effusion on CT scan. History Of Present Illness: Ms. Solorzano is a 65-year-old with no significant past medical histor y, does not take any medications at home except for aspirin, came in with COVID pneumonia, was noted on CT scan to have pericardial effusion. When I was consulted, she denied any chest pain, denied any unexplained nausea, vomiting, diaphoresis, PND, orthopnea, pedal edema, palpitation, or syncope. Ch est x-ray was negative. D-dimer is 723. Allergies: NONE. Medications: At home were aspirin. Review of Systems: Negative. Social History: Negative. Family History: Negative. Physical Examination: General: She is completely asymptomatic when I saw her. Vital Signs: Stable. Afebrile. HEENT: Negative. Neck: Supple. No bruit. Chest: Clear. Cardiac: Regular rhythm and rate. No murmurs, gallops, or rubs. Abdomen: Benign. Extremities: No clubbing, cyanosis, or edema. Diagnostic Studies: EKG showed normal sinus rhythm. Chest x-ray was negative. Rest of the diagnost ic data are stated earlier. Impression And Plan: Pericardial effusion by CT scan, possibly secondary to a reaction from the COVI D pneumonia. The patient does not appear to be hemodynamically unstable. Her EKG is normal without any electrical alternans. We will obtain a 2D echocardiogram, but if that looks adequate with a smal l pericardial effusion, then there is no need for intervention. I will see what the echocardiogram s hows before making further decisions. BLAS/KODI Voice ID: [id number] Report ID: [id number]
== END 2020-11-28 14:10 | disposition home or self-care (01) ==
LOC: ER 18:45 → ERHOLD 11-27 02:13 → 3RD-ICU 11-27 03:21
PROVIDERS: ADMIT Internal Medicine; ATTEND Hospitalist
DX: U07.1 COVID-19 (principal); J12.82 Pneumonia due to coronavirus disease 2019; I31.3 Pericardial effusion (noninflammatory); R94.31 Abnormal electrocardiogram [ECG] [EKG]
CPT/HCPCS: 93005; 93306; 85025 ×3; 80048; 36415 ×2; 83735 ×3; 84100 ×2; 85610; 85379; 80076; 85652; 81003; 87324; 84484; 82728 ×2; 80053 ×2; 83880; 87449; 0240U; 86140 ×3; 71275; 74177; 71045; 94760 ×3; 96375; 96374; 99285; Q9967; J1650 ×2; J7030 ×2; J2930; J2405; G0378 ×3; 81015; J7512

== ENCOUNTER 2021-07-12 08:54 | Emergency (ER) | payer OTHER ==
--- OUTSIDE RECORDS SUMMARY | 2021-07-12 08:56 | XMS REPORT | Continuity of Care Document ---
:1955 Author Organization [facility] t Address [address] [place] [address] Care Team Providers Name Role Phone Unavailable [...] [facility] B-Complex B-Complex Yes [facility] Biotin Biotin Yes [facility] not [facility] Aspir-81 Aspir-81 Yes Brandon [facility] [place] 2018- No Brandon [address] [facility] 03-02 Alexis applicatio Luke s - 00:00 n to Memoria :00 affected l area [facility] Procedures This patient has no known procedures. Encounters Start End Encounter Admission Attending Care Care Encounter Source Date/Time Date/Time Type Type Clinicians Facility Department ID 2018-02-23 2018-02-23 [facility] [id number] [facility] 14:20:00 14:20:00 t [facility] 2018-02-10 2018-02-10 [facility] [id number] [facility] 16:20:00 16:20:00 t [facility] 2018-02-02 2018-02-02 [facility] [id number] [facility] [address] 16:33:00 16:33:00 t [facility] 2017-11-05 2017-11-05 [facility] [id number] [facility] 14:45:00 14:45:00 t Specialty/U [facility] - Specialty rology [facility] a [facility] l [facility] Results This patient has no known results.
[2021-07-12] MEDS ORDERED: ONDANSETRON 4 MG/2 ML VIAL ONE (12:06)
[2021-07-12] MEDS ORDERED: dexAMETHasone 10 MG/ML VIAL ONE (12:06)
[2021-07-12] MEDS ORDERED: CYCLOBENZAPRINE 10 MG TAB ONE (12:06)
[2021-07-12] MEDS ORDERED: MORPHINE 4 MG/ML SYR ONE (12:06)
--- NOTE | 2021-07-12 12:29 | RAD REPORT ---
EXAM DESCRIPTION: CTSpine Lumbar Wo Con07/12/2021 12:10 pm CLINICAL HISTORY: Leg radiculopathy and numbness COMPARISON: None TECHNIQUE: Computed axial tomography lumbar spine was obtained with coronal and sagittal reconstruct ion. All CT scans are performed using dose optimization technique as appropriate and may include automated exposure control or mA/KV adjustment according to patient size. FINDINGS: No fracture is seen. No dislocation is noted. A large disc bulge/herniation not visualized. IMPRESSION: Negative for a lumbar fracture. If patient continues have symptoms to suggest spinal canal pathology then MRI would be recommended
--- NOTE | 2021-07-12 12:57 | ER ---
Nurse's Notes [facility] Name: Fabiola Solorzano Age: 65 yrs Sex: Female : 1955 Arrival Date: 07/12/2021 Time: 09:04 Bed 4 Private MD: Flakito Garcia Diagnosis: Low back pain;Muscle spasm of back Presentation: 07/12 09:18 Chief complaint: Patient states: States had a back injury about two months ago and was vg1 seeing Dr Cortes for rehab; states has to wear a back support. Last night pt states bent over and 'heard a snap'. States lower back pain that radiates up the back and down to KHLOE hips and KHLOE legs. Coronavirus screen: Vaccine status: Patient reports being unvaccinated. Client denies travel out of the [place] in the last 14 days. Ebola Screen: Patient negative for fever greater than or equal to 101.5 degrees Fahrenheit, and additional compatible Ebola Virus Disease symptoms. Initial Sepsis Screen: Does the patient meet any 2 criteria? No. Patient's initial sepsis screen is negative. Does the patient have a suspected source of infection? No. Patient's initial sepsis screen is negative. Risk Assessment: Do you want to hurt yourself or someone else? Patient reports no desire to harm self or others. Onset of symptoms was July 11, 2021. 09:18 Method Of Arrival: Wheelchair vg1 09:18 Acuity: SHABBIR 4 vg1 Triage Assessment: 09:23 General: Appears in no apparent distress. uncomfortable, Behavior is calm, cooperative. vg1 Pain: Complains of pain in lower back and left hip and right hip, left leg and right leg. Musculoskeletal: Circulation, motion, and sensation intact. Reports. Historical: - Allergies: 09:23 No Known Allergies; vg1 - Home Meds: 09:23 None [Active]; vg1 - PMHx: 09:23 None; vg1 - Immunization history:: Client reports having NOT received the Covid vaccine. - Social history:: Smoking status: Patient denies any tobacco usage or history of. Screenin:00 Abuse screen: Denies threats or abuse. Denies injuries from another. Nutritional jl7 screening: No deficits noted. Tuberculosis screening: No symptoms or risk factors identified. Fall Risk IV access (20 points). Assessment: 11:30 General: Appears in no apparent distress. uncomfortable, Behavior is calm, cooperative, jl7 appropriate for age. Pain: Complains of pain in low back area Pain currently is 10 out of 10 on a pain scale. Neuro: Level of Consciousness is awake, alert, obeys commands, Oriented to person, place, time, situation. Cardiovascular: Patient's skin is warm and dry. Respiratory: Airway is patent Respiratory effort is even, unlabored, Respiratory pattern is regular, symmetrical. Derm: Skin is pink, warm \T\ dry. Vital Signs: 09:18 BP 136 / 73; Pulse 63; Resp 17; Temp 98.1; Pulse Ox 98% ; Weight 88.45 kg; Height 5 ft. vg1 7 in. (170.18 cm); Pain 10/10; 13:53 BP 130 / 68; Pulse 66; Resp 15; Pulse Ox 98% ; jl7 09:18 Body Mass Index 30.54 (88.45 kg, 170.18 cm) vg1 ED Course: 09:04 Patient arrived in ED. mr 09:04 Flakito Garcia MD is Private Physician. mr 09:23 Triage completed. vg1 09:23 Arm band placed on. vg1 11:25 Ren Samuel, BREA is Primary Nurse. jl7 11:30 Patient has correct armband on for positive identification. Bed in low position. Call jl7 light in reach. Side rails up X 1. Pulse ox on. NIBP on. 11:36 [facility] jr8 11:36 Luis Donnelly MD is Attending Physician. jr8 12:09 CT Lumbar Spine Wo Con In Process Unspecified. EDMS 12:45 Inserted saline lock: 20 gauge in right forearm, using aseptic technique. jl7 12:56 Flakito Garcia MD is Referral Physician. jr8 13:54 IV discontinued, intact, bleeding controlled, No redness/swelling at site. Pressure jl7 dressing applied. 13:55 No provider procedures requiring assistance completed. jl7 Administered Medications: 12:42 Drug: Decadron - Dexamethasone 10 mg Route: IVP; Site: right forearm; jl7 13:30 Follow up: Response: No adverse reaction; Marked relief of symptoms jl7 12:45 Drug: Flexeril (cyclobenzaprine) 10 mg Route: PO; jl7 13:15 Follow up: Response: No adverse reaction; Pain is decreased jl7 12:50 Drug: Zofran (Ondansetron) 4 mg Route: IVP; Site: right forearm; jl7 14:03 Follow up: Response: No adverse reaction jl7 12:52 Drug: morphine 4 mg Route: IVP; Site: right forearm; jl7 13:15 Follow up: Response: No adverse reaction; Pain is decreased jl7 Outcome: 12:57 Discharge ordered by . jr8 13:55 Discharged to home via wheelchair. jl7 13:55 Condition: stable 13:55 Discharge instructions given to patient, family, Instructed on discharge instructions, follow up and referral plans. medication usage, Demonstrated understanding of instructions, follow-up care, medications, Prescriptions given X 3. 14:03 Patient left the ED. jl7 Signatures: Dispatcher [employer] ELVERMS FunkKatherine Jordan Hernandez PA PA jr8 Ren Samuel RN RN jl7 Sara Alfaro RN RN vg1 Corrections: (The following items were deleted from the chart) 09:23 09:18 Coronavirus screen: Vaccine status: Patient reports receiving the 2nd dose of the vg1 covid vaccine. Client denies travel out of the [place] in the last 14 days. vg1 09:25 09:18 Chief complaint: Patient states: States had a back injury about two months ago vg1 and was seeing Dr Cortes for rehab; states has to wear a back support. Last night pt states bent over and 'heard a snap'. vg1 13:55 11:45 Inserted saline lock: 20 gauge in right forearm, using aseptic technique. jl7 jl7
--- NOTE | 2021-07-12 12:57 | EDPHYS ---
Physician Documentation [facility] Name: Fabiola Solorzano Age: 65 yrs Sex: Female : 1955 Arrival Date: 07/12/2021 Time: 09:04 Bed 4 Private MD: Flakito Garcia ED Physician Luis Donnelly HPI: 07/12 12:06 This 65 yrs old Female presents to ER via Wheelchair with complaints of Back Pain. jr8 12:06 The patient presents with pain that is acute. The symptoms are located in the low back. jr8 Onset: The symptoms/episode began/occurred acutely, yesterday. The pain radiates to the right leg and left leg. Associated signs and symptoms: The patient has no apparent associated signs or symptoms. The problem was sustained when bending over. Modifying factors: The patient symptoms are alleviated by nothing, the patient symptoms are aggravated by any movement. Severity of symptoms: At their worst the symptoms were moderate, in the emergency department the symptoms are unchanged. The patient has experienced a previous episode. The patient has not recently seen a physician. Patient with history of low back pain. Stated that she bent over and felt pop in low back. Has had pain to low back and down both thighs since incident . Historical: - Allergies: 09:23 No Known Allergies; vg1 - Home Meds: :23 None [Active]; vg1 - PMHx: :23 None; vg1 - Immunization history:: Client reports having NOT received the Covid vaccine. - Social history:: Smoking status: Patient denies any tobacco usage or history of. ROS: 12:06 Eyes: Negative for injury, pain, redness, and discharge, ENT: Negative for injury, jr8 pain, and discharge, Neck: Negative for injury, pain, and swelling, Cardiovascular: Negative for chest pain, palpitations, and edema, Respiratory: Negative for shortness of breath, cough, wheezing, and pleuritic chest pain, Abdomen/GI: Negative for abdominal pain, nausea, vomiting, diarrhea, and constipation, MS/Extremity: Negative for injury and deformity, Skin: Negative for injury, rash, and discoloration, Neuro: Negative for headache, weakness, numbness, tingling, and seizure. 12:06 Back: Positive for pain at rest, pain with movement, radiated pain, of the low back area. Exam: 12:06 Constitutional: This is a well developed, well nourished patient who is awake, alert, jr8 and in no acute distress. Cardiovascular: Regular rate and rhythm with a normal S1 and S2. No gallops, murmurs, or rubs. Normal PMI, no JVD. No pulse deficits. Respiratory: Lungs have equal breath sounds bilaterally, clear to auscultation and percussion. No rales, rhonchi or wheezes noted. No increased work of breathing, no retractions or nasal flaring. Abdomen/GI: Soft, non-tender, with normal bowel sounds. No distension or tympany. No guarding or rebound. No evidence of tenderness throughout. Skin: Warm, dry with normal turgor. Normal color with no rashes, no lesions, and no evidence of cellulitis. MS/ Extremity: Pulses equal, no cyanosis. Neurovascular intact. Full, normal range of motion. Neuro: Awake and alert, GCS 15, oriented to person, place, time, and situation. Cranial nerves II-XII grossly intact. Motor strength 5/5 in all extremities. Sensory grossly intact. 12:06 Back: pain, that is moderate, of the low back area, ROM is painful, with all movement, normal spinal alignment noted, CVA tenderness, is absent, vertebral tenderness, is not appreciated. Vital Signs: 09:18 BP 136 / 73; Pulse 63; Resp 17; Temp 98.1; Pulse Ox 98% ; Weight 88.45 kg; Height 5 ft. vg1 7 in. (170.18 cm); Pain 10/10; 13:53 BP 130 / 68; Pulse 66; Resp 15; Pulse Ox 98% ; jl7 09:18 Body Mass Index 30.54 (88.45 kg, 170.18 cm) vg1 MDM: 11:36 Patient medically screened. jr8 12:35 Data reviewed: vital signs, nurses notes, radiologic studies, CT scan. Data jr8 interpreted: Pulse oximetry: on room air is 98 %. Interpretation: normal. Counseling: I had a detailed discussion with the patient and/or guardian regarding: the historical points, exam findings, and any diagnostic results supporting the discharge/admit diagnosis, radiology results, the need for outpatient follow up, a family practitioner, to return to the emergency department if symptoms worsen or persist or if there are any questions or concerns that arise at home. ED course: No acute findings on CT. Patient able to move both legs. No saddle anesthesia, bowel, or bladder dysfunction. Will have patient follow up with PCP. Will start patient on meds for back pain . 07/12 11:47 Order name: CT Lumbar Spine Wo Con; Complete Time: 12:33 jr8 07/12 11:47 Order name: IV; Complete Time: 12:53 jr8 Administered Medications: 12:42 Drug: Decadron - Dexamethasone 10 mg Route: IVP; Site: right forearm; jl7 13:30 Follow up: Response: No adverse reaction; Marked relief of symptoms jl7 12:45 Drug: Flexeril (cyclobenzaprine) 10 mg Route: PO; jl7 13:15 Follow up: Response: No adverse reaction; Pain is decreased jl7 12:50 Drug: Zofran (Ondansetron) 4 mg Route: IVP; Site: right forearm; jl7 14:03 Follow up: Response: No adverse reaction jl7 12:52 Drug: morphine 4 mg Route: IVP; Site: right forearm; jl7 13:15 Follow up: Response: No adverse reaction; Pain is decreased jl7 Disposition: 17:05 Co-signature as Attending Physician, Luis Donnelly MD. Chart complete. ma2 Disposition Summary: 07/12/21 12:57 Discharge Ordered Location: Home jr8 Problem: new jr8 Symptoms: have improved jr8 Condition: Stable jr8 Diagnosis - Low back pain jr8 - Muscle spasm of back jr8 Followup: jr8 - With: Flakito aGrcia MD - When: 2 - 3 days - Reason: Recheck today's complaints, Continuance of care, Re-evaluation by your physician Discharge Instructions: - Discharge Summary Sheet jr8 - Acute Back Pain, Adult jr8 - Heat Therapy jr8 Forms: - Medication Reconciliation Form jr8 - Thank You Letter jr8 - Antibiotic Education jr8 - Prescription Opioid Use jr8 Prescriptions: - meloxicam 15 mg Oral tablet - take 1 tablet by ORAL route once daily As needed; 16 tablet; Refills: 0, jr8 Product Selection Permitted - Skelaxin 800 mg Oral Tablet - take 1 tablet by ORAL route every 8 hours As needed; 30 tablet; Refills: 0, jr8 Product Selection Permitted - Medrol (Bryan) 4 mg Oral Tablets, Dose Pack - take 1 tablet by ORAL route as directed - follow package instructions; 1 jr8 packet; Refills: 0, Product Selection Permitted Signatures: Dispatcher [employer] Jordan Cabrera PA PA jr8 Ren Samuel, RN RN jl7 Luis Donnelly MD MD ma2 Sara Alfaro RN RN vg1
[2021-07-12 14:14] VITALS: TEMP 98.1; O2SAT 98
[2021-07-12 14:16] VITALS: BP 130/68
== END 2021-07-12 14:03 | disposition home or self-care (01) ==
LOC: ER 08:54
DX: M62.830 Muscle spasm of back (principal)
CPT/HCPCS: 72131; 96375; 96374; 99284; J1100; J2405

== ENCOUNTER 2022-07-01 18:38 | Emergency (ER) | payer OTHER ==
--- OUTSIDE RECORDS SUMMARY | 2022-07-01 18:42 | XMS REPORT | Continuity of Care Document ---
:1955 Author Organization [facility] t Address [address] [place] [address] Care Team Providers Name Role Phone Unavailable Unavailable Unavailable Problems Condition Condition Condition Status Onset Resolution Last Treating Co mments Source Name Details Category Date Date Treatment Clinician Date Liver cyst Liver cyst Problem Active C ommon [facility] Allergic Allergic Problem Active Commo n rhinitis, rhinitis, Spir it seasonal seasonal [facility] Breast Breast Problem Active Common cyst cyst [facility] Anxiety Anxiety Problem Active Common [facility] Osteopenia Osteopenia Problem Active C ommon [facility] Palpitatio Palpitatio Problem Active C ommon ns ns [facility] Myalgia Myalgia Problem Active Common [facility] Urine Urine Problem Active Common incontinen incontinen Sp gareth ce ce [facility] Migraine Migraine Problem Active Commo n [facility] Low back Low back Problem Active Commo n pain pain [facility] Pure Pure Problem Active Common hyperchole hyperchole Sp gareth sterolemia sterolemia [facility] Adult BMI Adult BMI Problem Active Com mon 31.0-31.9 31.0-31.9 Spir it kg/sq m kg/sq m [facility] Neuralgia Neuralgia Problem Active Com mon and and Spirit neuritis neuritis [facility] Simple Simple Problem Active Common renal cyst renal cyst Sp gareth [facility] Nocturnal Nocturnal Diagnosis Active C ommon leg cramps leg cramps Sp gareth [facility] LLQ LLQ Diagnosis Active Common abdominal abdominal Spir it pain pain [facility] Allergies, Adverse Reactions, Alerts This patient has no known allergies or adverse reactions. Medications Ordered Filled Start Stop Current Ordering Indication Dosage Frequency Signature Comments Components Source Medication Medication Date Date Medication? Clinician (SIG) Name Name B-12 B-12 Yes Brandon not Common Alexis defined [facility] iron iron Yes Brandon not Common Alexis [facility] B-Complex B-Complex Yes Brandon not Co mmon Alexis defined [facility] Biotin Biotin Yes Brandon not Common Alexis defined [facility] Aspir-81 Aspir-81 Yes Brandon not Comm on Alexis defined [facility] [place] 2018- No Brandon 1 Common 03-02 Alexis applicatio Spir it 00:00 n to - [facility] :00 affected [facility] Procedures This patient has no known procedures. Encounters Start End Encounter Admission Attending Care Care Encounter Source Date/Time Date/Time Type Type Clinicians Facility Department ID 2018-02-23 2018-02-23 [id number] Common 14:20:00 14:20:00 [place] Naomiei pierre [facility] 2018-02-10 2018-02-10 [id number] Common 16:20:00 16:20:00 [place] Spiri pierre [facility] 2018-02-02 2018-02-02 [facility] [id number] Common 16:33:00 16:33:00 [place] Spiri pierre [facility] 2017-11-05 2017-11-05 [facility] [id number] Common 14:45:00 14:45:00 t Specialty/U Sp gareth Specialty rology - [facility] Clinic [facility] Results This patient has no known results.
--- NOTE | 2022-07-01 20:15 | RAD REPORT ---
EXAM DESCRIPTION: RAD - Chest Single View - 07/01/2022 7:33 pm CLINICAL HISTORY: COUGH COMPARISON: Chest Single View dated 11/26/2020 FINDINGS: Lines: None. Lungs: No evidence of edema or pneumonia. Pleural: No significant pleural effusions or pneumothorax. Cardiac: The heart size is within normal limits. Mediastinum: Within normal limits. Bones: No acute fractures. Other: None IMPRESSION: No acute cardiopulmonary disease.
[2022-07-01 20:46] LABS: SARS-COV-2 RT PCR POSITIVE (NEGATIVE)
--- NOTE | 2022-07-01 21:01 | EDPHYS ---
Physician Documentation [facility] Name: Fabiola Solorzano Age: 66 yrs Sex: Female : 1955 Arrival Date: 07/01/2022 Time: 18:47 Bed 10 Private MD: ED Physician Jey Ricardo HPI: 07/01 19:28 This 66 yrs old Female presents to ER via Ambulatory with complaints of cough, Chest rn Congestion. 19:28 The patient or guardian reports cough, with no sputum. Onset: The symptoms/episode rn began/occurred yesterday. Severity of symptoms: At their worst the symptoms were mild, in the emergency department the symptoms are unchanged. Modifying factors: The symptoms are alleviated by nothing, the symptoms are aggravated by nothing. Associated signs and symptoms: Pertinent positives: sore throat, Pertinent negatives: chest pain, fever, vomiting. The patient has not experienced similar symptoms in the past. The patient has been recently seen by a physician:. Pt reports cough/congestion/sore throat for 2 days, no fever, around "a lot of sick people lately". Reports sob during coughing spell. No current chest pain or sob. No chronic medical problems. NO hemoptysis. . Historical: - Allergies: 19:14 No Known Allergies; as6 - Home Meds: 19:14 None [Active]; as6 - PMHx: 19:14 None; as6 - PSHx: 19:14 eye; as6 - Immunization history:: Client reports having NOT received the Covid vaccine. Flu vaccine is not up to date. - Social history:: Smoking status: Patient denies any tobacco usage or history of. - Family history:: not pertinent. - Hospitalizations: : No recent hospitalization is reported. ROS: 19:28 Constitutional: Negative for fever, chills, and weight loss, Eyes: Negative for injury, rn pain, redness, and discharge, ENT: + nasal congestion and sore throat Cardiovascular: Negative for chest pain, palpitations, and edema, Respiratory: + cough Abdomen/GI: Negative for abdominal pain, nausea, vomiting, diarrhea, and constipation, Back: Negative for injury and pain, MS/Extremity: Negative for injury and deformity, Skin: Negative for injury, rash, and discoloration, Neuro: Negative for weakness, numbness, tingling, and seizure. Exam: 19:28 Constitutional: This is a well developed, well nourished patient who is awake, alert, rn and in no acute distress. Head/Face: Normocephalic, atraumatic. ENT: No stridor, + mild pharyngeal erythema, MMM Neck: + non-tender cervical LAD Cardiovascular: Regular rate and rhythm. No pulse deficits. Respiratory: No increased work of breathing, no retractions or nasal flaring. Skin: Warm, dry MS/ Extremity: Pulses equal, no cyanosis. Neuro: Awake and alert, GCS 15 Vital Signs: 19:19 BP 152 / 84; Pulse 91; Resp 18 S; Temp 98.7(O); Pulse Ox 98% on R/A; Weight 84.82 kg as6 (R); Height 5 ft. 7 in. (170.18 cm) (R); Pain 5/10; 20:46 BP 157 / 73; Pulse 98; Resp 18; Pulse Ox 97% on R/A; em6 19:19 Body Mass Index 29.29 (84.82 kg, 170.18 cm) as6 MDM: 19:06 Patient medically screened. rn 20:59 Differential Diagnosis: Bronchitis Influenza Upper Respiratory Infection Pharyngitis rn Viral Syndrome Pneumonia. Data reviewed: vital signs, EMS record, lab test result(s), radiologic studies, plain films, and as a result, I will discharge patient. Counseling: I had a detailed discussion with the patient and/or guardian regarding: the historical points, exam findings, and any diagnostic results supporting the discharge/admit diagnosis, lab results, radiology results, the need for outpatient follow up, to return to the emergency department if symptoms worsen or persist or if there are any questions or concerns that arise at home. Special discussion: I discussed with the patient/guardian in detail that at this point there is no indication for admission to the hospital. It is understood, however, that if the symptoms persist or worsen the patient needs to return immediately for re-evaluation. Based on the history and exam findings, there is no indication for further emergent testing or inpatient evaluation. I discussed with the patient/guardian the need to see the primary care provider for further evaluation of the symptoms. 07/01 19:19 Order name: COVID-19/FLU A+B; Complete Time: 20:50 rn 07/01 19:19 Order name: Strep; Complete Time: 20:18 rn 07/01 19:19 Order name: XRAY Chest (1 view); Complete Time: 20:18 rn 07/01 20:20 Order name: Throat Culture EDMS Administered Medications: No medications were administered Disposition Summary: 07/01/22 20:59 Discharge Ordered Location: Home rn Problem: new rn Symptoms: have improved rn Condition: Stable rn Diagnosis - SARS-associated coronavirus as the cause of diseases classified elsewhere rn Followup: rn - With: Private Physician - When: As needed - Reason: Recheck today's complaints, Re-evaluation by your physician Discharge Instructions: - Discharge Summary Sheet rn - COVID-19 rn - 10 Things You Can Do to Manage Your COVID-19 Symptoms at Home - CDC rn - Viral Illness, Adult rn - Prevent the Spread of COVID-19 if You Are Sick - CDC rn Forms: - Medication Reconciliation Form rn - Thank You Letter rn - Antibiotic management internship - Prescription Opioid Use rn Signatures: Dispatcher [employer] Jey Millan MD MD rn Slawson, Ashby, RN RN as6
--- NOTE | 2022-07-01 21:01 | ER ---
Nurse's Notes [facility] Name: Fabiola Solorzano Age: 66 yrs Sex: Female : 1955 Arrival Date: 07/01/2022 Time: 18:47 Bed 10 Private MD: Diagnosis: SARS-associated coronavirus as the cause of diseases classified elsewhere Presentation: 07/01 19:11 Chief complaint: Patient states: "I've been having congestion in my chest and as6 coughing". Coronavirus screen: Client presents with at least one sign or symptom that may indicate coronavirus-19. Ebola Screen: No symptoms or risks identified at this time. Risk Assessment: Do you want to hurt yourself or someone else? Patient reports no desire to harm self or others. Onset of symptoms was June 30, 2022. 19:11 Method Of Arrival: Ambulatory as6 19:11 Acuity: SHABBIR 4 as6 19:19 Initial Sepsis Screen: Does the patient meet any 2 criteria? No. Patient's initial as6 sepsis screen is negative. Does the patient have a suspected source of infection? No. Patient's initial sepsis screen is negative. Triage Assessment: 19:23 General: Appears in no apparent distress. Behavior is calm, cooperative. Pain: as6 Complains of pain in chest. EENT: Throat is reddened. Historical: - Allergies: 19:14 No Known Allergies; as6 - Home Meds: 19:14 None [Active]; as6 - PMHx: 19:14 None; as6 - PSHx: 19:14 eye; as6 - Immunization history:: Client reports having NOT received the Covid vaccine. Flu vaccine is not up to date. - Social history:: Smoking status: Patient denies any tobacco usage or history of. - Family history:: not pertinent. - Hospitalizations: : No recent hospitalization is reported. Screenin:[address] [facility] ED Fall Risk Assessment (Adult) History of falling in the last 3 months, em6 including since admission No falls in past 3 months (0 pts) Confusion or Disorientation No (0 pts) Intoxicated or Sedated No (0 pts) Impaired Gait No (0 pts) Mobility Assist Device Used No (0 pt) Altered Elimination No (0 pt) Score/Fall Risk Level 0 - 2 = Low Risk Oriented to surroundings, Maintained a safe environment, Educated pt \\T\\ family on fall prevention, incl call for assistance when getting out of bed, Assessed \\T\\ reinforced patient's understanding of fall precautions, Provided non-skid footwear, Hourly rounding (assess needs \\T\\ fall precautionary measures) done, Used ambulatory aids as needed (educated on \\T\\ assisted with), Used gait belt as appropriate. Abuse screen: Denies threats or abuse. Nutritional screening: No deficits noted. Tuberculosis screening: No symptoms or risk factors identified. Assessment: 20:42 Reassessment: see triage assessment. em6 Vital Signs: 19:19 BP 152 / 84; Pulse 91; Resp 18 S; Temp 98.7(O); Pulse Ox 98% on R/A; Weight 84.82 kg as6 (R); Height 5 ft. 7 in. (170.18 cm) (R); Pain 5/10; 20:46 BP 157 / 73; Pulse 98; Resp 18; Pulse Ox 97% on R/A; em6 19:19 Body Mass Index 29.29 (84.82 kg, 170.18 cm) as6 ED Course: 18:47 Patient arrived in ED. rg4 19:06 Jey Ricardo MD is Attending Physician. rn 19:14 Triage completed. as6 19:20 Arm band placed on. as6 19:35 XRAY Chest (1 view) In Process Unspecified. EDMS 20:42 Monet Lyons, RN is Primary Nurse. em6 20:42 Bed in low position. Call light in reach. Side rails up X 1. Pulse ox on. NIBP on. Warm em6 blanket given. 21:17 No provider procedures requiring assistance completed. Patient did not have IV access em6 during this emergency room visit. Administered Medications: No medications were administered Medication: 20:42 VIS not applicable for this client. em6 Outcome: 20:59 Discharge ordered by . rn 21:18 Discharged to home ambulatory. em6 21:18 Condition: stable 21:18 Discharge instructions given to patient, Instructed on discharge instructions, follow up and referral plans. Demonstrated understanding of instructions, follow-up care. 21:18 Patient left the ED. em6 Signatures: Dispatcher [employer] EDMS Jey Ricardo MD MD rn Garcia, Rubi rg4 Junaid Navarrete RN RN as6 Monet Lyons, RN RN em6
[2022-07-01 21:22] VITALS: TEMP 98.7
[2022-07-01 21:23] VITALS: BP 157/73; O2SAT 97
== END 2022-07-01 21:18 | disposition home or self-care (01) ==
LOC: ER 18:38
DX: U07.1 COVID-19 (principal)
CPT/HCPCS: 87070; 87081; 0240U; 71045; 99283